=== PATIENT | female | born 1970 | race Caucasian/White ===

== ENCOUNTER → 2020-02-21 12:05 | Outpatient (BNVA) | payer OTHER, SELFPAY | PROVIDERS: PCP Internal Medicine; Referring Provider Internal Medicine; Visit Provider Advanced Practice Midwife | DX: Z76.89 Persons encountering health services in other specified circumstances (principal) ==

== ENCOUNTER → 2021-02-04 09:13 | Outpatient (BNVA) | payer OTHER, SELFPAY | PROVIDERS: PCP Internal Medicine; Visit Provider Advanced Practice Midwife ==

== ENCOUNTER 2021-03-25 07:48 | Outpatient (REF) | payer OTHER, SELFPAY ==
--- NOTE | ~2021-03-25 | MM_ITS ---
EXAMINATION: MM SCREENING DIGITAL BREAST TOMOSYNTHESIS, BILATERAL CLINICAL INFORMATION: Screening. Asymptomatic. The lifetime risk of breast cancer based on the Tyrer-Cuzick Model is 19.8%. COMPARISON: Mammography: February 10, 2020 and studies dating back to June 27, 2013 TECHNIQUE: Digital breast tomosynthesis is performed in both the craniocaudal and mediolateral oblique views along with computer-aided detection (CAD). Synthesized 2D images are generated from the tomosynthesis. FINDINGS: The breasts are almost entirely fatty (ACR BI-RADS breast composition Category a). There are no significant masses, abnormal calcifications, or other abnormalities. MM/MM tomosynthesis screening BI IMPRESSION: There are no significant changes from prior study. ASSESSMENT: BI-RADS 1: Negative RECOMMENDATION: Routine annual mammography screening. This patient's information was entered into a reminder system with a target due date for their next mammogram.
== END 2021-03-25 07:49 | disposition home or self-care (01) ==
LOC: HO.MAMMO 07:48
PROVIDERS: PCP Internal Medicine; Visit Provider Internal Medicine
DX: Z12.31 Encounter for screening mammogram for malignant neoplasm of breast (principal)
CPT/HCPCS: 77063; 77067

== ENCOUNTER → 2021-05-25 15:14 | Outpatient (BNVA) | payer OTHER, SELFPAY | PROVIDERS: PCP Internal Medicine; Visit Provider Advanced Practice Midwife ==

== ENCOUNTER → 2021-06-24 13:51 | Outpatient (BNVA) | payer OTHER, SELFPAY | PROVIDERS: PCP Internal Medicine; Visit Provider Advanced Practice Midwife | DX: Z30.46 Encounter for surveillance of implantable subdermal contraceptive (principal) | CPT/HCPCS: 11982 ==

== ENCOUNTER 2021-11-25 16:02 | Outpatient (REF) | payer OTHER, SELFPAY ==
--- NOTE | ~2021-11-25 | XR_ITS ---
EXAMINATION: XR KNEE, RIGHT CLINICAL INFORMATION: M25.561 - Pain in right knee. COMPARISON: Standing AP knees and right knee 03/03/2015. TECHNIQUE: AP and lateral views of the right knee are obtained. FINDINGS: No fracture, dislocation, destructive process. There is borderline thickening suprapatellar bursa representing trace effusion. Hoffa's fat pad appears normal. There is mild narrowing medial knee joint compartment with small spur from medial femoral condyle. No erosive change or chondrocalcinosis. XR/XR knee RT 2V IMPRESSION: -Mild narrowing medial knee joint compartment. No erosive changes. -Probable trace fluid suprapatellar bursa.
== END 2021-11-25 16:03 | disposition home or self-care (01) ==
LOC: HO.XRAY 16:02
PROVIDERS: PCP Internal Medicine; Visit Provider Internal Medicine
DX: M25.561 Pain in right knee (principal)
CPT/HCPCS: 73560

== ENCOUNTER 2021-12-09 12:42 | Outpatient (REF) | payer OTHER, SELFPAY ==
[2021-12-11 09:06] LABS: Follicle Stimulating Hormone 64.9 mIU/mL
== END 2021-12-09 12:43 | disposition home or self-care (01) ==
LOC: HO.LAB 12:42
PROVIDERS: PCP Internal Medicine; Visit Provider Advanced Practice Midwife
DX: N91.2 Amenorrhea, unspecified (principal)
CPT/HCPCS: 36415; 83001

== ENCOUNTER 2022-01-25 06:17 | Emergency (ER) | payer OTHER, SELFPAY ==
--- NOTE | ~2022-01-25 | XR_ITS ---
EXAMINATION: XR CHEST CLINICAL INFORMATION: Chest pain COMPARISON: None TECHNIQUE: Frontal view of the chest was obtained. FINDINGS: The lungs are hypoexpanded with no acute process seen. The heart size and pulmonary vascularity is normal. No gross bony abnormality. XR/XR chest 1V IMPRESSION: Unremarkable chest exam.
[2022-01-25 06:44] VITALS: BP 156/77; PULSE 74; RESP 16; TEMP -13.4; TEMP 7.9; O2SAT 99; BMI 34.9
--- NOTE | 2022-01-25 07:25 | ED.CHESTPAIN ---
HPI - Chest Pain General Chief Complaint: Chest Pain Stated Complaint: chest pain, nausea Time Seen by Provider: 01/25/22 07:24 Source: patient Mode of arrival: ambulatory Limitations: no limitations History of Present Illness HPI narrative: CXhest pain since last Night,denies SOB,radiation of the pain,cough. Feels like pressure intermittent lasting 2 minutes complaint: chest pain Onset (ago): day(s) (1) Timing of current episode: episodic Onset: during rest Pain location: substernal Pain radiation: none Severity: mild Quality: heaviness Relieving factors: nothing Exacerbating factors: nothing Context: recent illness Associated symptoms: nausea Related Data Home Medications Medication Instructions Recorded Confirmed aripiprazole 20 mg tablet 20 mg PO BEDTIME PRN 02/21/20 11/24/21 Previous Rx's Medication Instructions Recorded econazole 1 % topical cream 1 appl topical DAILY 90 days #85 02/19/21 grams cyclobenzaprine 5 mg tablet 5 mg PO TID PRN muscle spasm #14 08/19/21 tabs meloxicam 15 mg tablet 15 mg PO DAILY 14 days #14 tabs 11/24/21 omeprazole 40 mg capsule,delayed 40 mg PO DAILY 90 days #90 caps 12/02/21 release valacyclovir 1 gram tablet 1,000 mg PO DAILY 30 days #30 tabs 12/07/21 meloxicam 15 mg tablet 15 mg PO DAILY 14 days #14 tabs 01/03/22 Allergies Allergy/AdvReac Type Severity Reaction Status Date / Time quetiapine [From Seroquel] Allergy Mild Swelling Verified 01/06/22 15:14 aspirin Allergy Unknown Not Verified 01/06/22 15:14 supposed to take after gastric bypass Environmental Allergy Unknown Unknown Uncoded 08/19/21 09:07 [facility] Past Medical History [facility] Narrative: Bipolar disorder; Medical History History of irregular menstrual bleeding Hx of hemorrhoids Hx of herpes simplex infection Hx of obesity Hx of tinea corporis Pulmonary embolism Surgical History Hx of gastric bypass Hx of hammer toe correction Family History Family History Father HTN (hypertension) Mother HTN (hypertension) Maternal Grandmother Stroke Paternal Grandfather Stomach cancer Paternal Grandmother HTN (hypertension) Glaucoma Diabetes mellitus Paternal Grandmother No problems noted. Paternal Aunt Breast cancer Other Mental health disorder Substance use disorder Social History Social History Housing: Apartment Alcohol intake: former Patient Tobacco Use Status: Never used Tobacco e-Cigarette/Vaping Use: Never Used Second Hand Smoke Exposure: No Advance Directives: No Advance Directives Information Provided: Yes Current occupational status: employed Cognitive needs: No Hearing needs: No Vision needs: Yes Physical Exam Vital Signs: Vital Signs: Last Vital Signs Temp 7.9 F L 01/25/22 06:44 Pulse 79 01/25/22 12:22 Resp 16 01/25/22 12:22 BP 130/70 01/25/22 12:22 Pulse Ox 99 01/25/22 12:22 O2 Del Method 01/25/22 12:22 BMI result Body Mass Index 34.9 Const: General: cooperative, comfortable, no acute distress, well developed and awake Nutritional Appearance: average body habitus Orientation/consciousness: patient oriented x3 Limitations: no limitations HEENT: Head: Yes normal to inspection Ears: hearing grossly normal bilaterally Face and sinus: Yes normal facial exam Mouth: Normal oral and palatal mucosa present Teeth and gingiva: dentition normal Throat: Yes posterior oropharynx normal Neck: Neck: Yes normal visual inspection and Yes full ROM Chest: Chest palpation & inspection: normal inspection of the chest Resp: Effort & Inspection: normal respiratory effort Cardio: Jugular venous distension: no JVD Rate: regular rate Rhythm: regular rhythm GI: Inspection: Yes normal to inspection Palpation (GI): Soft to palpation and not firm : General: Yes no CVA tenderness Back/Spine/Pelvis: Back: no CVA tenderness Skin: General skin exam: no rashes or lesions noted Neuro: General: patient oriented x3 Course Reevaluation(s) Reevaluation #1: I re-evaluated patient at this time a patient is doing much better she has no pain delta troponin negative a chest x-ray is negative will discharge her home Time: 12:05 MDM - Chest Pain Lab Data Result diagrams: 01/25/22 07:58 01/25/22 09:00 Labs: Lab Results 01/25/22 01/25/22 01/25/22 Range/Units 07:58 07:58 09:00 WBC 7.2 (4.8-10.8) X10*3/uL RBC 4.57 (4.20-5.50) X10*6/uL Hgb 12.4 (12.0-16.0) g/dl Hct 39.7 (37.0-47.0) % MCV 86.9 (80.0-98.0) fL MCH 27.1 (27.0-33.0) pg MCHC 31.2 (31.0-35.0) g/dl RDW 13.9 (11.0-16.0) % Plt Count 329 (160-400) X10*3/uL MPV 10.0 (9.4-12.3) fL Immature Gran % (Auto) 0.1 (0.0-0.4) % Neut % (Auto) 52.4 (45-73) % Lymph % (Auto) 34.5 (20-40) % Gonzales % (Auto) 8.8 (2-11) % Eos % (Auto) 3.6 (0-4) % Baso % (Auto) 0.6 (0-2) % Lymph # (Auto) 2.5 (1.2-4.9) X10*3/uL Gonzales # (Auto) 0.6 (0.1-1.2) X10*3/uL Eos # (Auto) 0.3 (0.0-0.4) X10*3/uL Baso # (Auto) 0.0 (0.0-0.2) X10*3/uL Abs Immat Gran (auto) 0.01 (0.00-0.03) X10*3/uL Absolute Neuts (auto) 3.8 (2.0-8.3) x10*3/uL Absolute Nucleated RBC 0.000 (0.0-0.012) X10*3/uL Nucleated RBC % (auto) 0.0 (0.0-0.2) /100WBC Sodium 141 (135-145) mmol/L Potassium 4.3 (3.3-5.1) mmol/L Chloride 107 (96-108) mmol/L Carbon Dioxide 25 (22-29) mmol/L Anion Gap 13 (12-20) BUN 15 (9-16) mg/dL Creatinine 0.71 (0.5-1.4) mg/dL Estim Creat Clear Calc 119.8 Estimated GFR > 60 Random Glucose 94 (60-115) mg/dL Calcium 8.5 (8.4-10.2) mg/dL Total Bilirubin 0.4 (0.0-1.0) mg/dL AST 16 (5-31) U/L ALT 18 (0-31) U/L Alkaline Phosphatase 77 (39-117) U/L Troponin I High Sens < 3.5 (<3.5-17.0) ng/L Total Protein 6.7 (6.5-8.0) g/dL Albumin 4.0 (3.5-5.0) g/dL 01/25/22 Range/Units 10:59 WBC (4.8-10.8) X10*3/uL RBC (4.20-5.50) X10*6/uL Hgb (12.0-16.0) g/dl Hct (37.0-47.0) % MCV (80.0-98.0) fL MCH (27.0-33.0) pg MCHC (31.0-35.0) g/dl RDW (11.0-16.0) % Plt Count (160-400) X10*3/uL MPV (9.4-12.3) fL Immature Gran % (Auto) (0.0-0.4) % Neut % (Auto) (45-73) % Lymph % (Auto) (20-40) % Gonzales % (Auto) (2-11) % Eos % (Auto) (0-4) % Baso % (Auto) (0-2) % Lymph # (Auto) (1.2-4.9) X10*3/uL Gonzales # (Auto) (0.1-1.2) X10*3/uL Eos # (Auto) (0.0-0.4) X10*3/uL Baso # (Auto) (0.0-0.2) X10*3/uL Abs Immat Gran (auto) (0.00-0.03) X10*3/uL Absolute Neuts (auto) (2.0-8.3) x10*3/uL Absolute Nucleated RBC (0.0-0.012) X10*3/uL Nucleated RBC % (auto) (0.0-0.2) /100WBC Sodium (135-145) mmol/L Potassium (3.3-5.1) mmol/L Chloride (96-108) mmol/L Carbon Dioxide (22-29) mmol/L Anion Gap (12-20) BUN (9-16) mg/dL Creatinine (0.5-1.4) mg/dL Estim Creat Clear Calc Estimated GFR Random Glucose (60-115) mg/dL Calcium (8.4-10.2) mg/dL Total Bilirubin (0.0-1.0) mg/dL AST (5-31) U/L ALT (0-31) U/L Alkaline Phosphatase (39-117) U/L Troponin I High Sens < 3.5 (<3.5-17.0) ng/L Total Protein (6.5-8.0) g/dL Albumin (3.5-5.0) g/dL Imaging Data Chest x-ray: Radiologist's impression: cc: Ham Morton MD~ EXAMINATION: XR CHEST CLINICAL INFORMATION: Chest pain COMPARISON: None TECHNIQUE: Frontal view of the chest was obtained. FINDINGS: The lungs are hypoexpanded with no acute process seen. The heart size and pulmonary vascularity is normal. No gross bony abnormality. XR/XR chest 1V IMPRESSION: Unremarkable chest exam. ? Dictated By: Dalton Fallon MD Signed By: <Electronically signed by Dalton Fallon MD in OV> 01/25/22918 DD/ 3 TD/TT:? 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: [facility] [place] ECG Data ECG #1: Pacemaker model: NSR [address]-t changes no ischemia Discharge Plan Discharge Clinical Impression: Chest pain Patient Disposition: Home, Self-Care Instructions: Chest Pain (DC) Prescriptions: No Action omeprazole 40 mg capsule,delayed release(DR/EC) 40 mg PO DAILY 90 Days Qty: 90 1RF valacyclovir 1 gram tablet 1,000 mg PO DAILY 30 Days Qty: 30 0RF meloxicam 15 mg tablet 15 mg PO DAILY 14 Days Qty: 14 0RF econazole 1 % cream 1 appl topical DAILY 90 Days Qty: 85 0RF cyclobenzaprine 5 mg tablet 5 mg PO TID PRN (Reason: muscle spasm) Qty: 14 0RF meloxicam 15 mg tablet 15 mg PO DAILY 14 Days Qty: 14 0RF aripiprazole 20 mg tablet 20 mg PO BEDTIME PRN Referrals: Ceferino Chen MD [Primary Care Provider] - 2 days Stand Alone Forms: Work/School Release Interventions: ED Discharge Assessment Last Done: 01/25/22 12:28 Discharge Date/Time: 01/25/22 12:30
[2022-01-25 08:02] LABS: Hematocrit 39.7 % (37.0-47.0); Hemoglobin 12.4 g/dl (12.0-16.0); Imm Gran Pct Auto 0.1 % (0.0-0.4); Lymphocytes Percent Auto 34.5 % (20-40); MANUAL DIFF FLAG NO; Mean Corpuscular HGB Conc 31.2 g/dl (31.0-35.0); Mean Corpuscular Hemoglobin 27.1 pg (27.0-33.0); Mean Corpuscular Volume 86.9 fL (80.0-98.0); Neutrophils Percent Auto 52.4 % (45-73); Platelet Count 329 X10*3/uL (160-400); Red Blood Count 4.57 X10*6/uL (4.20-5.50); Red Cell Distribution Width 13.9 % (11.0-16.0); White Blood Count 7.2 X10*3/uL (4.8-10.8)
[2022-01-25 08:03] LABS: Basophils Percent Auto 0.6 % (0-2); Eosinophils Absolute Auto 0.3 X10*3/uL (0.0-0.4); Eosinophils Percent Auto 3.6 % (0-4); Imm Gran Abs Auto 0.01 X10*3/uL (0.00-0.03); Lymphocytes Absolute Auto 2.5 X10*3/uL (1.2-4.9); Monocytes Absolute Auto 0.6 X10*3/uL (0.1-1.2); Monocytes Percent Auto 8.8 % (2-11); Neutrophils Absolute Auto 3.8 x10*3/uL (2.0-8.3)
[2022-01-25] MEDS: ondansetron HCL 4 MG/2 ML VIAL IVPUSH (08:03)
[2022-01-25 08:23] LABS: Troponin-I High Sensitivity < 3.5 ng/L (<3.5-17.0)
--- NOTE | 2022-01-25 08:33 | ECG_ITS ---
Test Reason : CHEST PAIN Blood Pressure : / mmHG Vent. Rate : 069 BPM Atrial Rate : 069 BPM P-R Int : 160 ms QRS Dur : 080 ms QT Int : 392 ms P-R-T Axes : 057 025 048 degrees QTc Int : 420 ms Normal sinus rhythm with sinus arrhythmia Normal ECG When compared with ECG of 03-JUN-2011 10:28, No significant change was found Referred By: Ham Morton Electronically Signed By:NIKOLAY COMBS
[2022-01-25 09:28] LABS: Alanine Aminotransferase 18 U/L (0-31); Alkaline Phosphatase 77 U/L (39-117); Anion Gap 13 (12-20); Aspartate Amino Transferase 16 U/L (5-31); Bilirubin Total 0.4 mg/dL (0.0-1.0); Blood Urea Nitrogen 15 mg/dL (9-16); Calcium 8.5 mg/dL (8.4-10.2); Carbon Dioxide 25 mmol/L (22-29); Chloride 107 mmol/L (96-108); Creatinine Clr Calc Pharmacy 119.8; Estimated Glomerular Filt Rate > 60; Glucose Random 94 mg/dL (60-115); Potassium 4.3 mmol/L (3.3-5.1); Sodium 141 mmol/L (135-145); Total Protein 6.7 g/dL (6.5-8.0)
[2022-01-25 10:45] VITALS: BP 134/73; PULSE 57; RESP 16; O2SAT 99
--- NOTE | 2022-01-25 10:46 | PC.NURSE ---
Sinus christina on tele, Pt reports pain is not present at this time. Sinus christina on tele rate 50s. Denies any SOB or dizziness. Mild nausea. Skin pd. Speaking full sentences. VSS. awaits dispo
[2022-01-25 11:28] LABS: Troponin-I High Sensitivity < 3.5 ng/L (<3.5-17.0)
[2022-01-25 12:22] VITALS: BP 130/70; PULSE 79; RESP 16; O2SAT 99
== END 2022-01-25 12:30 | disposition home or self-care (01) ==
PROVIDERS: Emergency Provider Emergency Medicine; PCP Internal Medicine
DX: R07.89 Other chest pain (principal); R05.9 Cough, unspecified; R06.02 Shortness of breath; Z79.899 Other long term (current) drug therapy
CPT/HCPCS: 36415; 71045; 80053; 84484; 85025; 93005; 96374; 99284; J2405

== ENCOUNTER 2022-03-29 15:39 | Outpatient (REF) | payer OTHER, SELFPAY ==
--- NOTE | ~2022-03-29 | MM_ITS ---
EXAMINATION: MM SCREENING DIGITAL BREAST TOMOSYNTHESIS, BILATERAL CLINICAL INFORMATION: Screening. Asymptomatic. COMPARISON: Mammography: March 25, 2021 and studies dating back to July 23, 2015 TECHNIQUE: Digital breast tomosynthesis is performed in both the craniocaudal and mediolateral oblique views along with computer-aided detection (CAD). Synthesized 2D images are generated from the tomosynthesis. Additional left exaggerated craniocaudal view performed. FINDINGS: There are scattered areas of fibroglandular density (ACR BI-RADS breast composition Category b). There are no significant masses, abnormal calcifications, or other abnormalities. MM/MM tomosynthesis screening BI IMPRESSION: No significant changes from prior exam. ASSESSMENT: BI-RADS 1: Negative RECOMMENDATION: Routine annual mammography screening. This patient's information was entered into a reminder system with a target due date for their next mammogram.
== END 2022-03-29 15:40 | disposition home or self-care (01) ==
LOC: HO.MAMMO 15:39
PROVIDERS: PCP Internal Medicine; Visit Provider Internal Medicine
DX: Z12.31 Encounter for screening mammogram for malignant neoplasm of breast (principal)
CPT/HCPCS: 77063; 77067

== ENCOUNTER 2022-04-18 09:29 | Outpatient (REF) | payer OTHER, SELFPAY ==
--- NOTE | ~2022-04-18 | XR_ITS ---
EXAMINATION: XR HIP, LEFT CLINICAL INFORMATION: Left hip pain COMPARISON: None TECHNIQUE: Two views of the left hip. FINDINGS: No fracture, dislocation or destructive process. No erosive change. Pelvis intact. Small sclerotic areas seen over the right ischium likely bone islands. Right hip intact. XR/XR hip LT w PEL1V IMPRESSION: Unremarkable study.
== END 2022-04-18 09:30 | disposition home or self-care (01) ==
LOC: HO.HMGCX 09:29
PROVIDERS: PCP Internal Medicine; Visit Provider Internal Medicine
DX: M25.552 Pain in left hip (principal)
CPT/HCPCS: 73502

== ENCOUNTER 2022-05-30 11:21 | Outpatient (REF) | payer OTHER, SELFPAY ==
--- NOTE | ~2022-05-30 | XR_ITS ---
EXAMINATION: XR LUMBOSACRAL SPINE CLINICAL INFORMATION: Low back pain with radiculopathy. COMPARISON: 04/20/2015 lumbar spine radiographs. TECHNIQUE: Three views of the lumbosacral spine. FINDINGS: Mild to moderate multilevel degenerative disc disease is seen, most pronounced at L2-L3 and L3-L4. A limbus vertebra is noted at L4. Bodies are otherwise intact. The facet joints are unremarkable. The soft tissues are unremarkable. An IVC filter with mildly displaced broken prong is unchanged. XR/XR lumbar spine 2-3V IMPRESSION: Multilevel degenerative changes, mildly increased compared to thousand 15 study. No acute abnormality.
== END 2022-05-30 11:22 | disposition home or self-care (01) ==
LOC: HO.LAB 11:21
PROVIDERS: PCP Internal Medicine; Visit Provider Internal Medicine
DX: M54.16 Radiculopathy, lumbar region (principal)
CPT/HCPCS: 72100

== ENCOUNTER 2022-06-07 17:11 | Emergency (ER) | payer OTHER, SELFPAY ==
[2022-06-07 17:34] VITALS: BP 130/80; PULSE 88; RESP 18; TEMP 36.4; O2SAT 94; BMI 33.4
--- NOTE | 2022-06-07 17:37 | ED.GENADULT ---
HPI - General Adult General Chief complaint: Back Pain/Injury <SKIP Jordan - Last Filed: 06/07/22 20:11> Stated complaint: back pain <SKIP Jordan - Last Filed: 06/07/22 20:11> Time Seen by Provider: 06/07/22 17:47 <SKIP Jordan - Last Filed: 06/07/22 20:11> Source: patient <SKIP Tomas - Last Filed: 06/07/22 19:01> Mode of arrival: ambulatory <SKIP Tomas - Last Filed: 06/07/22 19:01> History of Present Illness HPI narrative: 52-year-old female with past medical history of PE, gastric bypass, osteoarthritis, chronic back pain, presenting to the ED complaining of acute on chronic low back pain radiating down right lower extremity. Reports paresthesias down right lower extremity. Admits to seen PCP multiple times for similar symptoms, currently taking Cyclobenzaprine, Tramadol, and Tylenol without relief. Denies new injury, trauma or fall, weakness, numbness, urinary incontinence/retention <SKIP Tomas - Last Filed: 06/07/22 19:01> Onset (ago): day(s) <SKIP Tomas - Last Filed: 06/07/22 19:01> Related Data Home medications: Home Medications Medication Instructions Recorded Confirmed aripiprazole 20 mg tablet 20 mg PO BEDTIME PRN 02/21/20 06/03/22 Previous Rx's Medication Instructions Recorded econazole 1 % topical cream 1 appl topical DAILY 90 days #85 02/19/21 grams omeprazole 40 mg capsule,delayed 40 mg PO DAILY 90 days #90 caps 12/02/21 release valacyclovir 1 gram tablet 1,000 mg PO DAILY 30 days #30 tabs 12/07/21 lidocaine 4 % topical patch 1 patch topical DAILY PRN pain #10 04/18/22 (Aspercreme (lidocaine)) ea meloxicam 15 mg tablet 15 mg PO DAILY #14 tabs 04/18/22 cyclobenzaprine 5 mg tablet 5 mg PO BEDTIME 30 days #30 tabs 05/30/22 tramadol 50 mg tablet 50 mg PO BID PRN pain 10 days #20 05/30/22 tabs acetaminophen 500 mg tablet 500 mg PO Q6H PRN fever or pain 06/07/22 (Tylenol Extra Strength) #14 tabs diazepam 2 mg tablet (Valium) 2 mg PO BID PRN muscle spasm 5 06/07/22 days #10 tabs lidocaine 5 % topical patch 1 patch topical DAILY PRN pain #30 06/07/22 (Lidoderm) ea <SKIP Jordan Last Filed: 06/07/22 20:11> Allergies/adverse reactions: Allergies Allergy/AdvReac Type Severity Reaction Status Date / Time quetiapine [From Seroquel] Allergy Mild Swelling Verified 05/27/22 08:21 aspirin Allergy Unknown Not Verified 05/27/22 08:21 supposed to take after gastric bypass Environmental Allergy Unknown Unknown Uncoded 05/27/22 08:21 <SKIP Jordan Last Filed: 06/07/22 20:11> Review of Systems Review of Systems: Constitutional: No Fever, No Chills ENT/Mouth: No Ear Pain, No Nasal Congestion, No sore throat, No Rhinorrhea, No Swallowing Difficulty Cardiovascular: No Chest Pain, No SOB Respiratory: No Cough, No Sputum Gastrointestinal: No Nausea, No Vomiting, No Diarrhea, No Constipation, No Abdominal pain Genitourinary: No Dysuria, No Hematuria, No Urinary Incontinence/retention, No Flank Pain Musculoskeletal: + joint pain, No Myalgias, No Joint Swelling Skin: No Skin Lesions, No rash Neuro: No Weakness, No Numbness, + Paresthesias <SKIP Tomas Last Filed: 06/07/22 19:01> Yes all other systems are reviewed and are negative <SKIP Tomas Last Filed: 06/07/22 19:01> Constitutional: Constitutional: Reports as per HPI <SKIP Tomas Last Filed: 06/07/22 19:01> PMF Past Medical History Attestation statement: The following information was validated with the patient. <SKIP Tomas Last Filed: 06/07/22 19:01> Medical History: Medical History History of irregular menstrual bleeding Hx of hemorrhoids Hx of herpes simplex infection Hx of obesity Hx of tinea corporis Pulmonary embolism <SKIP Jordan - Last Filed: 06/07/22 20:11> Surgical History: Surgical History Hx of gastric bypass Hx of hammer toe correction <SKIP Jordan - Last Filed: 06/07/22 20:11> Family History Family History: Family History Father HTN (hypertension) Mother HTN (hypertension) Maternal Grandmother Stroke Paternal Grandfather Stomach cancer Paternal Grandmother HTN (hypertension) Glaucoma Diabetes mellitus Paternal Grandmother No problems noted. 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 [employer] Current occupational exposures/hazards: No Cognitive needs: No Hearing needs: No Vision needs: Yes <SKIP Jordan - Last Filed: 06/07/22 20:11> Physical Exam ED Vital Signs: Vital Signs - 24 hr 06/07/22 17:34 Temperature 97.5 F Pulse Rate 88 Respiratory Rate 18 Blood Pressure 130/80 Pulse Oximetry 94 Oxygen Delivery Method Room Air BMI result Body Mass Index 33.4 <SKIP Jordan - Last Filed: 06/07/22 20:11> Vital Signs - 24 hr 06/07/22 17:34 Temperature 97.5 F Pulse Rate 88 Respiratory Rate 18 Blood Pressure 130/80 Pulse Oximetry 94 Oxygen Delivery Method Room Air BMI result Body Mass Index 33.4 <SKIP Tomas - Last Filed: 06/07/22 19:01> Const General: cooperative, healthy appearing and no acute distress <SKIP Tomas Last Filed: 06/07/22 19:01> Orientation/consciousness: patient oriented x3 <SKIP Tomas - Last Filed: 06/07/22 19:01> Limitations: no limitations <SKIP Tomas - Last Filed: 06/07/22 19:01> HENMT Head: Yes normal to inspection and Yes atraumatic <Krystal Rae PA - Last Filed: 06/07/22 19:01> Ears: hearing grossly normal bilaterally <Krystal Rae PA - Last Filed: 06/07/22 19:01> General nose exam: Normal external nose present <Krystal Rae PA - Last Filed: 06/07/22 19:01> Face and sinus: Yes normal facial exam <Krystal Rae PA - Last Filed: 06/07/22 19:01> Eyes General: appearance normal, both eyes and all related structures <Krystal Rae PA - Last Filed: 06/07/22 19:01> EOM: EOMs intact bilaterally <Krystal Rae PA - Last Filed: 06/07/22 19:01> Neck Neck: Yes normal visual inspection and Yes no meningeal signs <Krystal Rae PA - Last Filed: 06/07/22 19:01> Resp Effort & Inspection: normal respiratory effort and no respiratory distress <Krystal Rae PA - Last Filed: 06/07/22 19:01> Cardio Rate: regular rate <Krystal Rae PA - Last Filed: 06/07/22 19:01> Heart sounds: S1 normal heart sound present and S2 normal heart sound present <Krystal Rae PA - Last Filed: 06/07/22 19:01> Peripheral pulses: Peripheral pulses 2+ throughout <Krystal Rae PA - Last Filed: 06/07/22 19:01> GI Inspection: Yes normal to inspection <Krystal Rae PA - Last Filed: 06/07/22 19:01> Palpation (GI): Soft to palpation, nontender, no guarding and not rigid <Krystal Rae PA - Last Filed: 06/07/22 19:01> General: Yes no CVA tenderness <Krystal Rae PA - Last Filed: 06/07/22 19:01> Back/Spine/Pelvis Other: No midline thoracic/lumbar spinous tenderness/step-off or deformity. +bilateral lower lumbar MSK ttp <SKIP Tomas - Last Filed: 06/07/22 19:01> Back: no CVA tenderness <SKIP Tomas - Last Filed: 06/07/22 19:01> Thoracic/Lumbar Spine: thoracic and lumbar spine normal to inspection <SKIP Tomas - Last Filed: 06/07/22 19:01> Pelvis: no pain with anterior-posterior compression <SKIP Tomas - Last Filed: 06/07/22 19:01> Skin Rashes: no rashes <SKIP Tomas - Last Filed: 06/07/22 19:01> Wounds: no wounds <SKIP Tomas - Last Filed: 06/07/22 19:01> Neuro Other: Strength intact throughout. No saddle anesthesia. Sensation intact to light touch. Neurovascular intact distally. Guarded ambulation but steady, no ataxia <SKIP Tomas - Last Filed: 06/07/22 19:01> General: patient oriented x3, tone normal, moves all extremities, no meningeal signs and no focal motor deficits <SKIP Tomas Last Filed: 06/07/22 19:01> Gait exam (Neuro): Normal gait present <SKIP Tomas Last Filed: 06/07/22 19:01> Motor exam (neuro): 5/5 motor strength present throughout <SKIP Tomas Last Filed: 06/07/22 19:01> Extrem General: Yes normal to inspection <SKIP Tomas Last Filed: 06/07/22 19:01> Course Course Course Narrative: RME: 52 yold female with chronic back pain exacerbation already on tramadol, steroids, and muscle relaxer. <SKIP Jordan Last Filed: 06/07/22 20:11> RME: 52 yold female with chronic back pain exacerbation already on tramadol, steroids, and muscle relaxer. -1850--ED care transferred to SKIP Herman pending re-evaluation, anticipate discharge home <SKIP Tomas Last Filed: 06/07/22 19:01> Medications Administered Discontinued Medications Generic Name Dose Route Start Last Admin Trade Name Freq PRN Reason Stop Dose Admin Acetaminophen 650 mg 06/07/22 18:14 06/07/22 18:46 Acetaminophen 325 Mg Tablet PO 06/07/22 18:15 650 mg ONCE ONE Administration Diazepam 2 mg 06/07/22 18:13 06/07/22 18:46 Diazepam 2 Mg Tablet PO 06/07/22 18:14 2 mg ONCE ONE Administration Lidocaine 1 patch 06/07/22 18:13 06/07/22 18:46 Lidocaine 4 % Patch Adh..Patch TRANSDERMA 06/07/22 18:14 1 patch ONCE ONE Administration Protocol <SKIP Jordan - Last Filed: 06/07/22 20:11> Medications Administered Discontinued Medications Generic Name Dose Route Start Last Admin Trade Name Freq PRN Reason Stop Dose Admin Acetaminophen 650 mg 06/07/22 18:14 06/07/22 18:46 Acetaminophen 325 Mg Tablet PO 06/07/22 18:15 650 mg ONCE ONE Administration Diazepam 2 mg 06/07/22 18:13 06/07/22 18:46 Diazepam 2 Mg Tablet PO 06/07/22 18:14 2 mg ONCE ONE Administration Lidocaine 1 patch 06/07/22 18:13 06/07/22 18:46 Lidocaine 4 % Patch Adh..Patch TRANSDERMA 06/07/22 18:14 1 patch ONCE ONE Administration Protocol <SKIP Tomas - Last Filed: 06/07/22 19:01> Medical Decision Making Medical Decision Making MDM Narrative: 52-year-old female with past medical history of PE, gastric bypass, osteoarthritis, chronic back pain, presenting to the ED complaining of acute on chronic low back pain radiating down right lower extremity. On exam vital signs stable, NAD, nontoxic appearing, no midline spinous tenderness throughout or red flag symptoms. Ambulating with slow steady gait, no ataxia. Concern for MSK pain/strain and sciatica vs herniated disc. Low suspicion for cauda equina, cord compression, epidural abscess, no evidence of infection. Low suspicion for pyelo/renal stone Plan: PO Valium, Lidoderm patch, p.o. Tylenol, re-evaluation <SKIP Tomas Last Filed: 06/07/22 19:01> Differential Diagnosis Differential Diagnoses: The differential diagnosis associated with the presentation includes <SKIP Tomas Last Filed: 06/07/22 19:01> As above <SKIP Tomas - Last Filed: 06/07/22 19:01> Prescription Management I considered prescription management with: Pain Medication <SKIP Tomas - Last Filed: 06/07/22 19:01> Discharge Plan Discharge Clinical Impression: Acute lumbar radiculopathy <SKIP Jordan - Last Filed: 06/07/22 20:11> Patient Disposition: Home, Self-Care <SKIP Jordan - Last Filed: 06/07/22 20:11> Instructions: Lumbar Radiculopathy (ED) <SKIP Jordan - Last Filed: 06/07/22 20:11> Additional Instructions: Continue taking her previously prescribed medications. Valium is an additional muscle relaxer, take only when pain is severe. Please avoid mixing Valium with Flexeril or your tramadol. This can cause over-sedation Call your doctor for close follow-up Lidoderm patches are numbing patches, apply to painful area In addition take Tylenol at home If symptoms persist or worsen, pain becomes unbearable, you developed urinary retention or incontinence, or weakness return to the ED <SKIP Jordan - Last Filed: 06/07/22 20:11> Prescriptions: New diazepam [Valium] 2 mg tablet 2 mg PO BID PRN (Reason: muscle spasm) 5 Days Qty: 10 0RF acetaminophen [Tylenol Extra Strength] 500 mg tablet 500 mg PO Q6H PRN (Reason: fever or pain) Qty: 14 0RF lidocaine [Lidoderm] 5 % adhesive patch,medicated 1 patch topical DAILY MDD remove after 12 hours PRN (Reason: pain) Qty: 30 0RF Rx Instructions: leave on most painful area for up to 12 hrs No Action omeprazole 40 mg capsule,delayed release(DR/EC) 40 mg PO DAILY 90 Days Qty: 90 1RF valacyclovir 1 gram tablet 1,000 mg PO DAILY 30 Days Qty: 30 0RF econazole 1 % cream 1 appl topical DAILY 90 Days Qty: 85 0RF meloxicam 15 mg tablet 15 mg PO DAILY Qty: 14 0RF lidocaine [Aspercreme (lidocaine)] 4 % adhesive patch,medicated 1 patch topical DAILY PRN (Reason: pain) Qty: 10 0RF tramadol 50 mg tablet 50 mg PO BID PRN (Reason: pain) 10 Days Qty: 20 0RF cyclobenzaprine 5 mg tablet 5 mg PO BEDTIME 30 Days Qty: 30 0RF aripiprazole 20 mg tablet 20 mg PO BEDTIME PRN <SKIP Jordan - Last Filed: 06/07/22 20:11> Referrals: Gabrielle Gilman MD [Physician] - (call) Physician,Unknown J [Primary Care Provider] - <SKIP Jordan - Last Filed: 06/07/22 20:11> Stand Alone Forms: Work/School Release <SKIP Jordan - Last Filed: 06/07/22 20:11>
[2022-06-07] MEDS: Acetaminophen 325 MG TABLET 650 MG PO (18:46)
[2022-06-07] MEDS: Lidocaine 4 % Patch ADH..PATCH 1 PATCH TRANSDERMA (18:46)
[2022-06-07] MEDS: diazePAM 2 MG TABLET PO (18:46)
[2022-06-07 20:00] VITALS: BP 115/81; PULSE 69; RESP 16; TEMP 36.5; O2SAT 97
== END 2022-06-07 20:17 | disposition home or self-care (01) ==
PROVIDERS: Emergency Provider Emergency Medicine Emergency Medical Services
DX: M54.16 Radiculopathy, lumbar region (principal); M54.50 Low back pain, unspecified; M79.605 Pain in left leg; M79.604 Pain in right leg; Z79.899 Other long term (current) drug therapy; Z98.84 Bariatric surgery status
CPT/HCPCS: 99283; 99284

== ENCOUNTER 2022-09-13 08:53 | Outpatient (REF) | payer OTHER, SELFPAY ==
--- NOTE | ~2022-09-13 | US_ITS ---
EXAMINATION: US ABDOMEN COMPLETE CLINICAL INFORMATION: Abdominal pain. Right flank pain.. COMPARISON: CT scan dated February 26, 2018. Abdominal ultrasound dated October 07, 2013. TECHNIQUE: Real-time imaging of the abdominal viscera. FINDINGS: The study is limited by patient body habitus. PANCREAS: Not well visualized. ABDOMINAL AORTA: The proximal, mid, and distal segments are normal in caliber. INFERIOR VENA CAVA: Visualized portions are normal. LIVER: Grossly unremarkable The liver is normal in size. The liver contour is normal. Parenchymal echogenicity appears grossly unremarkable. No focal hepatic lesion appreciated. No intrahepatic biliary duct dilatation is seen. GALLBLADDER: The gallbladder is physiologically distended without evidence of stones, sludge, polyps, wall thickening or pericholecystic fluid. COMMON BILE DUCT: Measures 0.8 cm in diameter. RIGHT KIDNEY: No hydronephrosis. No renal calculi or focal parenchymal lesions. The kidney measures 12.0 cm in maximum dimension. LEFT KIDNEY: No hydronephrosis. No renal calculi or focal parenchymal lesions. The kidney measures 11.4 cm in maximum dimension. SPLEEN: The spleen measures 8.8 cm in maximum dimension. FREE FLUID: None. US/US abdomen complete IMPRESSION: No acute finding. Common bile duct upper normal in size to mildly dilated. No evidence of intrahepatic biliary ductal dilation or gallstone.
== END 2022-09-13 08:54 | disposition home or self-care (01) ==
LOC: HO.HMGCX 08:53
PROVIDERS: PCP Internal Medicine; Visit Provider Physician Assistant
DX: R10.9 Unspecified abdominal pain (principal)
CPT/HCPCS: 76700

== ENCOUNTER 2023-01-30 15:12 | Outpatient (AMB) | payer OTHER, SELFPAY ==
--- NOTE | 2023-01-30 15:13 | A.OFFVIS_ITS ---
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 No complaints. Last Pap/HPV was in 02/08 was negative Last Mammogram was in 04/12 was BI-RADS 1 No previous screening Colonoscopy done PFSH Medical History Flank pain Pulmonary embolism Hx of tinea corporis Hx of hemorrhoids Hx of herpes simplex infection History of irregular menstrual bleeding Hx of obesity Surgical History Hx of gastric bypass Hx of hammer toe correction Family History (Updated 01/30/23 @ 15:21 by Areli Britt CMA) Father HTN (hypertension) Lung cancer Mother HTN (hypertension) Maternal Grandmother Stroke Paternal Grandfather Stomach cancer Paternal Grandmother HTN (hypertension) Glaucoma Diabetes mellitus Paternal Grandmother No problems noted. 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 [employer] Current occupational exposures/hazards: No Sexually active: Yes Sexual orientation: Straight/Heterosexual Gender identity: Female Cognitive needs: No Hearing needs: No Vision needs: Yes Female Reproductive History Menstrual Age of Menarche: 15 Total pregnancies: 1 Number of Living Children: 0 Ab induced: 1 Date of last pap smear: 02/06/20 Date of Mammogram: 03/29/22 Review of Systems Const All systems reviewed & are unremarkable except as noted in HPI and below Card Reports as per HPI Resp Reports as per HPI GI Reports as per HPI and Reports no additional complaints Reports as per HPI Physical Exam Vital Signs: Last Vital Signs BP 116/70 01/30/23 15:14 BMI result Body Mass Index 36.5 Const General: cooperative, healthy appearing and comfortable Chest Chest palpation & inspection: normal inspection of the chest and normal palpation of entire chest wall Breast/axilla inspection: normal inspection of the breasts and normal inspection of the axillae Breast/axilla palpation: normal palpation of the breasts, normal palpation of the axillae and no axillary lymphadenopathy Resp Effort & Inspection: normal respiratory effort Auscultation: clear to auscultation bilaterally Percussion: percussion normal Cardio Palpation: normal PMI Rate: regular rate Rhythm: regular rhythm Heart sounds: no murmurs and no rubs Peripheral pulses: Peripheral pulses 2+ throughout GI Inspection: Yes normal to inspection Palpation (GI): Soft to palpation, nontender, no guarding, not rigid and No hepatosplenomegaly present Percussion: Yes normal to percussion Auscultation: normal bowel sounds Rectal Exam - Female: deferred General: Yes bladder normal to palpation External Female Exam: No lesion Speculum Exam - Vagina: normal appearance of the vagina, normal palpation, normal vaginal discharge and not erythematous Speculum Exam - Cervix: normal appearance of the cervix and normal palpation Bimanual exam- vagina & uterus: normal bimanual exam, normal palpation, uterine size normal, bladder normal to palpation, consistency normal and normal palpation Bimanual Exam- Adnexa, other: normal adnexae, no masses and no tenderness Assessment & Plan Assessment & Plan (1) Well woman exam: Code(s): Z01.419 - Encounter for gynecological examination (general) (routine) without abnormal findings Plan: Co testing not indicated this year. Counseled the patient about the recommended dietary allowance of 1200 mg of Calcium & 600 IU of vitamin D. Mammogram ordered , the patient was counseled regarding screening colonoscopy with a pros and cons , risks and benefits and the patient would like to think about to give back to me regarding referred to GI . The patient was instructed to perform monthly self-breast exams and schedule annual exam in a year; all questions answered and the patient verbalized understanding. Orders: Orders MM screening mammo BI Today Z12.31 - Encounter for screening mammogram for malignant neoplasm of breast Coding Level of Care Code Est Pt Prev Care 40-64y([id number]) Diagnoses Well woman exam Z01.419
[2023-01-30 15:14] VITALS: BP 116/70; BMI 36.5
== END 2023-01-30 15:41 | disposition home or self-care (01) ==
PROVIDERS: PCP Internal Medicine; Visit Provider Obstetrics & Gynecology
DX: Z01.419 Encounter for gynecological examination (general) (routine) without abnormal findings (principal)
CPT/HCPCS: 99396

== ENCOUNTER → 2023-01-30 15:12 | Outpatient (BNVA) | payer OTHER, SELFPAY | PROVIDERS: PCP Internal Medicine; Visit Provider Obstetrics & Gynecology ==

== ENCOUNTER 2023-03-07 14:39 | Outpatient (AMB) | payer OTHER, SELFPAY ==
[2023-03-07 14:41] VITALS: BP 112/70; PULSE 88; O2SAT 97; BMI 35.6
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
== END 2023-03-07 15:05 | disposition home or self-care (01) ==
PROVIDERS: Visit Provider Internal Medicine
DX: Z00.01 Encounter for general adult medical examination with abnormal findings (principal); E66.09 Other obesity due to excess calories; Z68.35 Body mass index [BMI] 35.0-35.9, adult; F31.81 Bipolar II disorder; F43.10 Post-traumatic stress disorder, unspecified; F41.1 Generalized anxiety disorder
CPT/HCPCS: 99396

== ENCOUNTER 2023-03-11 07:15 | Outpatient (REF) | payer OTHER, SELFPAY ==
[2023-03-11 07:42] LABS: MANUAL DIFF FLAG NO
[2023-03-11 08:14] LABS: Basophils Percent Auto 0.5 % (0-2); Eosinophils Absolute Auto 0.2 X10*3/uL (0.0-0.4); Eosinophils Percent Auto 3.8 % (0-4); Hemoglobin 11.8 g/dl (12.0-16.0); Imm Gran Abs Auto 0.02 X10*3/uL (0.00-0.03); Imm Gran Pct Auto 0.5 % (0.0-0.4); Lymphocytes Absolute Auto 1.6 X10*3/uL (1.2-4.9); Lymphocytes Percent Auto 38.4 % (20-40); Mean Corpuscular HGB Conc 31.1 g/dl (31.0-35.0); Mean Corpuscular Hemoglobin 26.3 pg (27.0-33.0); Mean Corpuscular Volume 84.6 fL (80.0-98.0); Mean Platelet Volume 9.8 fL (9.4-12.3); Monocytes Absolute Auto 0.7 X10*3/uL (0.1-1.2); Neutrophils Absolute Auto 1.7 x10*3/uL (2.0-8.3); Neutrophils Percent Auto 40.8 % (45-73); Platelet Count 286 X10*3/uL (160-400); Red Blood Count 4.49 X10*6/uL (4.20-5.50); Red Cell Distribution Width 14.4 % (11.0-16.0); White Blood Count 4.2 X10*3/uL (4.8-10.8)
[2023-03-11 08:57] LABS: Alanine Aminotransferase 18 U/L (0-31); Albumin Level 4.4 g/dL (3.5-5.0); Alkaline Phosphatase 79 U/L (39-117); Anion Gap 14 (12-20); Aspartate Amino Transferase 21 U/L (5-31); Bilirubin Total 0.6 mg/dL (0.0-1.0); Blood Urea Nitrogen 8 mg/dL (9-16); Calcium 9.3 mg/dL (8.4-10.2); Carbon Dioxide 23 mmol/L (22-29); Chloride 103 mmol/L (96-108); Cholesterol 188 mg/dL (<200); Estimated Glomerular Filt Rate > 60; Glucose Fasting 107 mg/dL (60-99); HDL Cholesterol 63 mg/dL (>40); LDL Cholesterol Calculated 107 mg/dL (<100); Potassium 4.1 mmol/L (3.3-5.1); Sodium 136 mmol/L (135-145); Total Protein 7.4 g/dL (6.5-8.0); Triglycerides 91 mg/dL (<150)
[2023-03-11 09:04] LABS: TSH reflex Free T4 1.02 uIU/mL (0.32-4.0)
== END 2023-03-11 07:16 | disposition home or self-care (01) ==
LOC: HO.LAB 07:15
PROVIDERS: PCP Internal Medicine; Visit Provider Internal Medicine
DX: Z00.01 Encounter for general adult medical examination with abnormal findings (principal); E66.09 Other obesity due to excess calories; F31.81 Bipolar II disorder; F43.10 Post-traumatic stress disorder, unspecified; F41.1 Generalized anxiety disorder
CPT/HCPCS: 36415; 80053; 80061; 84443; 85025

== ENCOUNTER 2023-04-24 07:20 | Outpatient (REF) | payer BC, SELFPAY | END 2023-04-24 07:21 | disposition home or self-care (01) | LOC: HO.MAMMO 07:20 | PROVIDERS: PCP Internal Medicine; Visit Provider Internal Medicine | DX: Z12.31 Encounter for screening mammogram for malignant neoplasm of breast (principal) | CPT/HCPCS: 77063; 77067 ==

== ENCOUNTER → 2023-04-24 07:45 | Outpatient (BNV) | payer BC, SELFPAY | PROVIDERS: PCP Internal Medicine; Visit Provider Radiology Diagnostic Radiology | DX: Z12.31 Encounter for screening mammogram for malignant neoplasm of breast (principal) | CPT/HCPCS: 77063; 77067 ==

== ENCOUNTER 2023-06-15 07:41 | Outpatient (AMB) | payer BC, SELFPAY ==
[2023-06-15 08:50] VITALS: BMI 37.4
--- NOTE | 2023-06-15 08:50 | MHC.PC.OV ---
Vital Signs 06/15/23 08:50 Height 5 ft 7 in Weight 239 lb BMI 37.4 Intake Visit Reasons: discuss weight gain/android/[phone] Allergies quetiapine [From Seroquel] Allergy (Mild, Verified 06/15/23 08:51) Swelling aspirin Allergy (Unknown, Verified 06/15/23 08:51) Not supposed to take after gastric bypass Environmental Allergy (Unknown, Uncoded 01/30/23 15:18) Unknown Medication List - Last Reconciled 06/15/23 by Ceferino Chen MD acetaminophen (Tylenol Extra Strength) 500 mg PO Q6H PRN aripiprazole 20 mg PO BEDTIME PRN econazole 1% 1 appl topical DAILY 90 days lidocaine 4% (Aspercreme (lidocaine)) 1 patch topical DAILY PRN valacyclovir 1,000 mg PO DAILY 30 days Tobacco use date assessed: 06/15/23 Dental Screening Dental Screen Date: 06/15/23 Did you have a dental visit in the last 12 months?: Yes Did you have a dental problem in the last 6 months where you did not have access to dental care?: No Was dental information given to patient?: Patient has dentist HPI discuss weight gain/android/[phone] HPI Details Patient is 53-year-old female with BMI of 37 This is a telemedicine conference to talk about weight Patient says that in 2010 she had gastric bypass surgery, and after that she has gained 30 lb Patient is looking for guidance, and referral to weight loss program. Referral placed [facility] Medical History Flank pain Pulmonary embolism Hx of tinea corporis Hx of hemorrhoids Hx of herpes simplex infection History of irregular menstrual bleeding Hx of obesity Surgical History Hx of gastric bypass Hx of hammer toe correction Family History Father HTN (hypertension) Lung cancer Mother HTN (hypertension) Maternal Grandmother Stroke Paternal Grandfather Stomach cancer Paternal Grandmother HTN (hypertension) Glaucoma Diabetes mellitus Paternal Grandmother No problems noted. 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 1. Little interest or pleasure in doing things: not at all 2. Feeling down, depressed, or hopeless: not at all 3. Trouble falling or staying asleep, or sleeping too much: several days 4. Feeling tired or having little energy: not at all 5. Poor appetite or overeating: not at all 6. Feeling bad about yourself - or that you are a failure or have let yourself or your family down: not at all 7. Trouble concentrating on things, such as reading the newspaper or watching television: not at all 8. Moving or speaking so slowly that other people could have noticed. Or the opposite - being so fidgety or restless that you have been moving around a lot more than usual: not at all 9. Thoughts that you would be better off or of hurting yourself in some way: not at all Total score: 1 Depression Screening Interpretation: Negative Depression Screening Done: Yes 20062 - PHQ-9 Billing: Yes Source: Developed by Drs. Dino Marte, Concha Ashraf, Davin Vivas and colleagues, with an educational miladys from [employer]. Thrive Questionnaire Date Thrive assessed: 03/01/22 AUDIT C Alcohol Use Questionnaire (AUDIT-C) 1. How often do you have a drink containing alcohol?: Never 3. How often do you have six or more drinks on one occasion?: Never Total Score: 0 Score Reviewed/Action Taken: Yes FREEDOM-7 AMB Questionnaire FREEDOM-7 Date FREEDOM - 7 assessed: 06/15/23 Feeling nervous, anxious, or on edge: 0 = Not at all Not being able to stop or control worryin = Not at all Worrying too much about different things: 0 = Not at all Trouble relaxin = Not at all Being so restless that it is hard to sit still: 0 = Not at all Becoming easily annoyed or irritable: 0 = Not at all Feeling afraid as if something awful might happen: 0 = Not at all Total FREEDOM-7 score (0-4 normal; 5-9 mild; 10-14 moderate; 15-21 severe): 0 Source: Developed by Drs. Dino Marte, Concha Ashraf, Davin Vivas and colleagues, with an educational miladys from [employer]. FREEDOM-7 Assessment Billing FREEDOM-7 Assessment Tool: FREEDOM-7 Assessment 12013 Review of Systems Const Denies chills and Denies fever(s) ENT Denies epistaxis and Denies nasal discharge Card Denies chest pain Resp Denies chest congestion, Denies cough and Denies hemoptysis GI Denies diarrhea and Denies nausea Skin/Breast Denies rash Neuro Reports no additional complaints Psych Reports no additional complaints Endo Reports no additional complaints Physical exam (Primary Care) Tobacco/Smoking Status: Tobacco use Status Tobacco use date assessed 06/15/23 06/15/23 08:54 Patient Tobacco Use Status Never used Tobacco 06/15/23 08:54 e-Cigarette/Vaping Use Never Used 06/15/23 08:54 PHQ-9: PHQ-9 Score PHQ-9: Total score 1 06/15/23 08:54 Depression Screening Interpretation: Negative Thrive Assessment: Date of Thrive Assessment Date Thrive assessed 03/01/22 06/15/23 08:54 Telehealth Telehealth Location of provider rendering services: practice address Location of patient: address on file Patient Identification confirmed using: Name, : Yes Telehealth method: voice only Patient verbally consented to treatment: Yes Patient verbally consented to billing insurance company: Yes Patient informed of any privacy concerns related to visit: Yes Minutes spent on Phone/Video with Pt.: 12 Assessment and Plan Assessment & Plan (1) Obesity due to excess calories: Code(s): E66.09 - Other obesity due to excess calories Qualifiers: Body mass index: BMI 35.0-35.9 Obesity classification: adult class 2 (BMI 35 - 39.9) Serious obesity comorbidity presence: without serious comorbidity Qualified Code(s): E66.09 - Other obesity due to excess calories; Z68.35 - Body mass index [BMI] 35.0-35.9, adult Plan Patient is 53-year-old female with BMI of 37 This is a telemedicine conference to talk about weight Patient says that in 2010 she had gastric bypass surgery, and after that she has gained 30 lb Patient is looking for guidance, and referral to weight loss program. Referral placed Orders: Referrals Bariatric Surgery Referral E66.09 - Other obesity due to excess calories Coding Level of Care Code Tele Est Pt Level 3 (49453) Diagnoses Class 2 obesity due to excess calories without serious comorbidity with body mass index (BMI) of 35.0 to 35.9 in adult E66.09; Z68.35 Body mass index: BMI 35.0-35.9 Obesity classification: adult class 2 (BMI 35 - 39.9) Serious obesity comorbidity presence: without serious comorbidity Additional Codes FREEDOM-7 Assessment Billing - FREEDOM-7 Assessment Tool: FREEDOM-7 Assessment [id number] ([id number])
== END 2023-06-15 11:54 | disposition home or self-care (01) ==
LOC: HO.HMGC 07:41
PROVIDERS: PCP Internal Medicine; Visit Provider Internal Medicine
DX: E66.09 Other obesity due to excess calories (principal); Z68.35 Body mass index [BMI] 35.0-35.9, adult
CPT/HCPCS: 99442

== ENCOUNTER 2023-12-01 07:36 | Outpatient (AMB) | payer BC, SELFPAY ==
[2023-12-01 07:39] VITALS: BP 120/82; PULSE 87; O2SAT 96; BMI 33.4
--- NOTE | 2023-12-01 07:39 | A.OFFPC_ITS ---
Vital Signs 3 12/01/23 07:39 Height 5 ft 7 in Weight 213 lb BMI 33.4 BP 120/82 Blood Pressure Location Rt brachial Position Sitting Pulse 87 Pulse Source Pulse Oximeter Pulse Oximetry (%) 96 Oxygen Delivery Method Room Air Intake Visit Reasons: Suspicious mole on skin Allergies quetiapine [From Seroquel] Allergy (Mild, Verified 12/01/23 07:42) Swelling aspirin Allergy (Unknown, Verified 12/01/23 07:42) Not supposed to take after gastric bypass Environmental Allergy (Unknown, Uncoded 12/01/23 07:42) Unknown Medication List - Last Reconciled 12/01/23 by Ceferino Chen MD acetaminophen (Tylenol Extra Strength) 500 mg PO Q6H PRN aripiprazole 20 mg PO BEDTIME PRN econazole 1% 1 appl topical DAILY 90 days lidocaine 4% (Aspercreme (lidocaine)) 1 patch topical DAILY PRN valacyclovir 1,000 mg PO DAILY 30 days Tobacco use date assessed: 12/01/23 Dental Screening Dental Screen Date: 12/01/23 Did you have a dental visit in the last 12 months?: Yes Did you have a dental problem in the last 6 months where you did not have access to dental care?: No Was dental information given to patient?: Patient has dentist HPI Suspicious mole on skin 2 HPI0 Details Patient is a 53-year-old female came in today to be evaluated for moles on her body Patient says that she has noticed right side upper shoulder skin moles are getting bigger On examination she has few moles of different sizes and shapes I have placed referral to Dermatology for evaluation Patient is also complaining of feeling lightheaded and short of breath when she goes up the stairs, she says that it has happened few times She has no asthma in is taking no inhalers There are no other symptoms like swelling of ankles or difficulty lying flat EKG done today shows no acute findings 81 beats per minute normal sinus rhythm We talked about well hydration, staying away from heat If it continued to happen patient is to let me know Her lungs are clear today She is requesting refill on omeprazole for chronic GERD I am reducing dose to 20 mg patient has been taking 40 mg for years. [facility] Medical History Flank pain Pulmonary embolism Hx of tinea corporis Hx of hemorrhoids Hx of herpes simplex infection History of irregular menstrual bleeding Hx of obesity Surgical History Hx of gastric bypass Hx of hammer toe correction Family History Father HTN (hypertension) Lung cancer Mother HTN (hypertension) Maternal Grandmother Stroke Paternal Grandfather Stomach cancer Paternal Grandmother HTN (hypertension) Glaucoma Diabetes mellitus Paternal Grandmother No problems noted. 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 1. Little interest or pleasure in doing things: not at all 2. Feeling down, depressed, or hopeless: not at all 3. Trouble falling or staying asleep, or sleeping too much: not at all 4. Feeling tired or having little energy: not at all 5. Poor appetite or overeating: not at all 6. Feeling bad about yourself - or that you are a failure or have let yourself or your family down: not at all 7. Trouble concentrating on things, such as reading the newspaper or watching television: not at all 8. Moving or speaking so slowly that other people could have noticed. Or the opposite - being so fidgety or restless that you have been moving around a lot more than usual: not at all 9. Thoughts that you would be better off or of hurting yourself in some way: not at all Total score: 0 Depression Screening Interpretation: Negative Depression Screening Done: Yes 98252 - PHQ-9 Billing: Yes Source: Developed by Drs. Dino Marte, Concha Ashraf, Davin Vivas and colleagues, with an educational miladys from [email or web address]. Thrive Questionnaire Date Thrive assessed: 12/01/23 I am a: Patient What is your living situation today?: I have a steady place to live Within the past 12 months, did the food you bought not last and you didn't have the money to get more?: Never true Within the past 12 months, did you worry whether your food would run out before you got money to buy more?: Never true Do you have trouble paying for medicines?: No Do you have trouble getting transportation to medical appointments?: No Do you have trouble paying your heating and electricity bill?: No Do you have trouble taking care of your child, family member or friend?: No Do you have trouble with day-to-day activities such as bathing, preparing meals, shopping, managing finances, etc.?: No Are you currently unemployed and looking for a job?: No Are you interested in more education?: No THRIVE Score: 0 AUDIT C Alcohol Use Questionnaire (AUDIT-C) 1. How often do you have a drink containing alcohol?: Never Total Score: 0 FREEDOM-7 AMB Questionnaire FREEDOM-7 Date FREEDOM - 7 assessed: 12/01/23 Feeling nervous, anxious, or on edge: 0 = Not at all Not being able to stop or control worryin = Not at all Worrying too much about different things: 0 = Not at all Trouble relaxin = Not at all Being so restless that it is hard to sit still: 0 = Not at all Becoming easily annoyed or irritable: 0 = Not at all Feeling afraid as if something awful might happen: 0 = Not at all Total FREEDOM-7 score (0-4 normal; 5-9 mild; 10-14 moderate; 15-21 severe): 0 Source: Developed by Drs. Dino Marte, Concha Ashraf, Davin Vivas and colleagues, with an educational miladys from [email or web address]. Review of Systems Const Denies chills and Denies fever(s) ENT Denies epistaxis and Denies nasal discharge Card Denies chest pain Resp Denies chest congestion, Denies cough and Denies hemoptysis GI Denies diarrhea and Denies nausea Skin/Breast Denies rash Neuro Reports no additional complaints Psych Reports no additional complaints Endo Reports no additional complaints Physical exam (Primary Care) Vital Signs: Last Vital Signs Pulse 87 12/01/23 07:39 BP 120/82 12/01/23 07:39 Pulse Ox 96 12/01/23 07:39 Oxygen Delivery Method Room Air 12/01/23 07:39 BMI result Body Mass Index 33.4 Tobacco/Smoking Status: Tobacco use Status Tobacco use date assessed 12/01/23 12/01/23 07:45 Patient Tobacco Use Status Never used Tobacco 12/01/23 07:40 e-Cigarette/Vaping Use Never Used 12/01/23 07:40 PHQ-9: PHQ-9 Score PHQ-9: Total score 0 12/01/23 08:16 Depression Screening Interpretation: Negative Thrive Assessment: Date of Thrive Assessment Date Thrive assessed 12/01/23 12/01/23 07:45 Const General: cooperative, comfortable and no acute distress Orientation/consciousness: patient oriented x3 HENMT Head: Yes normocephalic Eyes General: appearance normal, both eyes and all related structures Neck Neck: Yes supple Resp Effort & Inspection: normal respiratory effort, no cough and no stridor Cardio Rhythm: regular rhythm Heart sounds: S1 normal heart sound present and S2 normal heart sound present Skin General skin exam: turgor normal Full body images: 2 1. Most of different size and shapes Neuro General: patient oriented x3, tone normal and moves all extremities Extrem Right lower extremity: no edema Left lower extremity: no edema Office Procedures EKG [id number], Complete Assessment and Plan Assessment & Plan (1) Lightheadedness: Code(s): R42 - Dizziness and giddiness (2) Shortness of breath: Code(s): R06.02 - Shortness of breath (3) Skin cancer screening: Code(s): Z12.83 - Encounter for screening for malignant neoplasm of skin (4) Chronic GERD: Code(s): K21.9 - Gastro-esophageal reflux disease without esophagitis Plan Patient is a 53-year-old female came in today to be evaluated for moles on her body Patient says that she has noticed right side upper shoulder skin moles are getting bigger On examination she has few moles of different sizes and shapes I have placed referral to Dermatology for evaluation Patient is also complaining of feeling lightheaded and short of breath when she goes up the stairs, she says that it has happened few times She has no asthma in is taking no inhalers There are no other symptoms like swelling of ankles or difficulty lying flat EKG done today shows no acute findings 81 beats per minute normal sinus rhythm We talked about well hydration, staying away from heat If it continued to happen patient is to let me know Her lungs are clear today She is requesting refill on omeprazole for chronic GERD I am reducing dose to 20 mg patient has been taking 40 mg for years. Orders: Orders 2 AMB EKG-In Office Today R06.02 - Shortness of breath, R42 - Dizziness and giddiness Referrals 2 Dermatology Referral Z12.83 - Encounter for screening for malignant neoplasm of skin Medications: New 2 omeprazole 20 mg PO DAILY 90 caps 0RF Coding Level of Care Code Est Pt Level 4 (47429) Diagnoses Lightheadedness R42 Shortness of breath R06.02 Skin cancer screening Z12.83 Chronic GERD K21.9 CPT Codes EKG - CPT: 58540-[id number], Complete ([id number])
== END 2023-12-01 08:34 | disposition home or self-care (01) ==
PROVIDERS: PCP Internal Medicine; Visit Provider Internal Medicine
DX: R42 Dizziness and giddiness (principal); R06.02 Shortness of breath; Z12.83 Encounter for screening for malignant neoplasm of skin; K21.9 Gastro-esophageal reflux disease without esophagitis
CPT/HCPCS: 93000; 99214

== ENCOUNTER 2024-03-15 07:49 | Outpatient (AMB) | payer BC, SELFPAY ==
[2024-03-15 07:51] VITALS: BP 110/82; PULSE 80; O2SAT 100; BMI 30.4
--- NOTE | 2024-03-15 07:51 | MHC.PC.OV ---
Vital Signs 03/15/24 07:51 Height 5 ft 7 in Weight 194 lb BMI 30.4 BP 110/82 Blood Pressure Location Rt brachial Position Sitting Pulse 80 Pulse Source Pulse Oximeter Pulse Oximetry (%) 100 Oxygen Delivery Method Room Air Intake Visit Reasons: Annual PE Allergies quetiapine [From Seroquel] Allergy (Mild, Verified 03/15/24 07:52) Swelling aspirin Allergy (Unknown, Verified 03/15/24 07:52) Not supposed to take after gastric bypass Environmental Allergy (Unknown, Uncoded 03/15/24 07:52) Unknown Medication List - Last Reconciled 03/15/24 by Ceferino Chen MD acetaminophen (Tylenol Extra Strength) 500 mg PO Q6H PRN aripiprazole 20 mg PO BEDTIME PRN econazole 1% 1 appl topical DAILY 90 days lidocaine 4% (Aspercreme (lidocaine)) 1 patch topical DAILY PRN omeprazole 20 mg PO DAILY valacyclovir 1,000 mg PO DAILY 30 days Tobacco use date assessed: 03/15/24 Dental Screening Dental Screen Date: 03/15/24 Did you have a dental visit in the last 12 months?: Yes Did you have a dental problem in the last 6 months where you did not have access to dental care?: No Was dental information given to patient?: Patient has dentist HPI Annual PE HPI Details Physical exam appointment Patient is a 53-year-old female Tells me that she is under stress these days as father is diagnosed with bladder cancer And she has been traveling to [place] frequently Cologuard was February of 2022, negative Patient agreed to have colonoscopy next year Mammogram up-to-date , she will be due in April Pap smear through [facility] Osteoarthritis right knee: Stable BMI is elevated patient is trying to lose weight Patient has diagnosis of bipolar PTSD And anxiety disorder She is seeing psychiatrist and is under treatment doing well Impaired fasting sugar, diet-controlled is recommended Recurrent Herpes genitalia, valacyclovir script sent Labs to be done today [facility] Medical History Flank pain Pulmonary embolism Hx of tinea corporis Hx of hemorrhoids Hx of herpes simplex infection History of irregular menstrual bleeding Hx of obesity Surgical History Hx of gastric bypass Hx of hammer toe correction Family History Father HTN (hypertension) Lung cancer Mother HTN (hypertension) Maternal Grandmother Stroke Paternal Grandfather Stomach cancer Paternal Grandmother HTN (hypertension) Glaucoma Diabetes mellitus Paternal Grandmother No problems noted. 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 1. Little interest or pleasure in doing things: not at all 2. Feeling down, depressed, or hopeless: not at all 3. Trouble falling or staying asleep, or sleeping too much: several days 4. Feeling tired or having little energy: not at all 5. Poor appetite or overeating: not at all 6. Feeling bad about yourself - or that you are a failure or have let yourself or your family down: not at all 7. Trouble concentrating on things, such as reading the newspaper or watching television: not at all 8. Moving or speaking so slowly that other people could have noticed. Or the opposite - being so fidgety or restless that you have been moving around a lot more than usual: not at all 9. Thoughts that you would be better off or of hurting yourself in some way: not at all Total score: 1 Depression Screening Interpretation: Negative Depression Screening Done: Yes 39670 - PHQ-9 Billing: Yes Source: Developed by Drs. Dino Marte, Concha Ashraf, Davin Vivas and colleagues, with an educational miladys from [employer]. Thrive Questionnaire Date Thrive assessed: 03/15/24 I am a: Patient What is your living situation today?: I have a steady place to live Within the past 12 months, did the food you bought not last and you didn't have the money to get more?: Never true Within the past 12 months, did you worry whether your food would run out before you got money to buy more?: Never true Do you have trouble paying for medicines?: No Do you have trouble getting transportation to medical appointments?: No Do you have trouble paying your heating and electricity bill?: No Do you have trouble taking care of your child, family member or friend?: No Do you have trouble with day-to-day activities such as bathing, preparing meals, shopping, managing finances, etc.?: No Are you currently unemployed and looking for a job?: No Are you interested in more education?: No Please select the resources that you would like help with: None Currently or been in a relationship where the following occur: No concerns reported THRIVE Score: 0 AUDIT C Alcohol Use Questionnaire (AUDIT-C) 1. How often do you have a drink containing alcohol?: Never 3. How often do you have six or more drinks on one occasion?: Never Total Score: 0 FREEDOM-7 AMB Questionnaire FREEDOM-7 Date FREEDOM - 7 assessed: 03/15/24 Feeling nervous, anxious, or on edge: 0 = Not at all Not being able to stop or control worryin = Not at all Worrying too much about different things: 0 = Not at all Trouble relaxin = Not at all Being so restless that it is hard to sit still: 0 = Not at all Becoming easily annoyed or irritable: 0 = Not at all Feeling afraid as if something awful might happen: 0 = Not at all Total FREEDOM-7 score (0-4 normal; 5-9 mild; 10-14 moderate; 15-21 severe): 0 Source: Developed by Drs. Dino Marte, Concha Ashraf, Davin Vivas and colleagues, with an educational miladys from [employer]. Review of Systems Const Denies chills, Denies fever(s) and Denies headache(s) Eyes Denies blurry vision ENT Denies headache(s), Denies nasal discharge, Denies nasal obstruction, Denies odynophagia and Denies sinus pain Card Denies chest pain at rest and Denies chest pain with activity Resp Denies cough and Denies hemoptysis GI Denies diarrhea, Denies odynophagia, Denies vomiting and Denies hematemesis Reports as per HPI Musc Denies abnormal gait Skin/Breast Reports as per HPI Neuro Denies Neuro-related abnormal movements, Denies Abnormal speech present, Denies abnormal gait, Denies headache(s) and Denies Sensory deficit (Neuro) Psych Denies mood swings and Denies paranoia Endo Reports as per HPI Angel/Lymph Reports as per HPI Aller/Immun Reports as per HPI Physical exam (Primary Care) Vital Signs: Last Vital Signs Pulse 80 03/15/24 07:51 BP 110/82 03/15/24 07:51 Pulse Ox 100 03/15/24 07:51 Oxygen Delivery Method Room Air 03/15/24 07:51 BMI result Body Mass Index 30.4 Tobacco/Smoking Status: Tobacco use Status Tobacco use date assessed 03/15/24 03/15/24 07:54 Patient Tobacco Use Status Never used Tobacco 03/15/24 07:54 e-Cigarette/Vaping Use Never Used 03/15/24 07:54 PHQ-9: PHQ-9 Score PHQ-9: Total score 1 03/15/24 08:06 Depression Screening Interpretation: Negative Thrive Assessment: Date of Thrive Assessment Date Thrive assessed 03/15/24 03/15/24 07:54 Currently or been in a relationship where the following occur: No concerns reported Const General: cooperative, comfortable and no acute distress Orientation/consciousness: patient oriented x3 HENMT Head: Yes normocephalic and Yes atraumatic Eyes General: appearance normal, both eyes and all related structures Pupils: Equal, round and reactive pupils present EOM: EOMs intact bilaterally Neck Neck: Yes supple and No lymphadenopathy Thyroid: Thyroid normal Lymphatic: no lymphadenopathy noted Resp Effort & Inspection: normal respiratory effort and able to speak in complete sentences Auscultation: clear to auscultation bilaterally Cardio Heart sounds: S1 normal heart sound present and S2 normal heart sound present GI Palpation (GI): Soft to palpation and nontender Auscultation: normal bowel sounds General: Yes no CVA tenderness Back/Spine/Pelvis Back: no CVA tenderness Skin General skin exam: elasticity normal and turgor normal Neuro General: patient oriented x3 and gait normal Cranial nerves: Yes Equal, round and reactive pupils present Speech: No Abnormal speech present Sensory Exam: No Sensory deficit (Neuro) Coordination: tandem gait normal and Romberg test negative Extrem General: Yes normal exam except as noted and No edema Coding Level of Care Code Est Pt Level 3 (37228) Est Pt Prev Care 40-64y(27973) Diagnoses Encounter for general adult medical examination with abnormal findings Z00. Chronic GERD K21.9 PTSD (post-traumatic stress disorder) F43.10 Anxiety, generalized F41.1 Recurrent genital herpes A60.00 Assessment & Plan Assessment & Plan (1) Encounter for general adult medical examination with abnormal findings: Code(s): Z00.01 - Encounter for general adult medical examination with abnormal findings Category: Medical (2) Chronic GERD: Code(s): K21.9 - Gastro-esophageal reflux disease without esophagitis Category: Medical (3) PTSD (post-traumatic stress disorder): Code(s): F43.10 - Post-traumatic stress disorder, unspecified Category: Medical (4) Anxiety, generalized: Code(s): F41.1 - Generalized anxiety disorder Category: Medical (5) Recurrent genital herpes: Code(s): A60.00 - Herpesviral infection of urogenital system, unspecified Category: Medical Plan Physical exam appointment Patient is a 53-year-old female Tells me that she is under stress these days as father is diagnosed with bladder cancer And she has been traveling to [place] frequently Cologuard was February of 2022, negative Patient agreed to have colonoscopy next year Mammogram up-to-date , she will be due in April Pap smear through [facility] Osteoarthritis right knee: Stable BMI is elevated patient is trying to lose weight Patient has diagnosis of bipolar PTSD And anxiety disorder She is seeing psychiatrist and is under treatment doing well Impaired fasting sugar, diet-controlled is recommended Recurrent Herpes genitalia, valacyclovir script sent Labs to be done today Orders: Orders Hemoglobin A1c Today F41.1 - Generalized anxiety disorder, F43.10 - Post-traumatic stress disorder, unspecified, K21.9 - Gastro-esophageal reflux disease without esophagitis, Z00.01 - Encounter for general adult medical examination with abnormal findings LDL Cholesterol Direct Today F41.1 - Generalized anxiety disorder, F43.10 - Post-traumatic stress disorder, unspecified, K21.9 - Gastro-esophageal reflux disease without esophagitis, Z00.01 - Encounter for general adult medical examination with abnormal findings Complete Blood Count Auto Diff Today F41.1 - Generalized anxiety disorder, F43.10 - Post-traumatic stress disorder, unspecified, K21.9 - Gastro-esophageal reflux disease without esophagitis, Z00.01 - Encounter for general adult medical examination with abnormal findings Comprehensive Met. Panel Today F41.1 - Generalized anxiety disorder, F43.10 - Post-traumatic stress disorder, unspecified, K21.9 - Gastro-esophageal reflux disease without esophagitis, Z00.01 - Encounter for general adult medical examination with abnormal findings Medications: Refilled valacyclovir 1,000 mg PO DAILY 30 tabs 0RF 30 days
== END 2024-03-15 08:18 | disposition home or self-care (01) ==
PROVIDERS: PCP Internal Medicine; Visit Provider Internal Medicine
DX: Z00.00 Encounter for general adult medical examination without abnormal findings (principal); K21.9 Gastro-esophageal reflux disease without esophagitis; F43.10 Post-traumatic stress disorder, unspecified; F41.1 Generalized anxiety disorder; A60.00 Herpesviral infection of urogenital system, unspecified

== ENCOUNTER → 2024-03-15 07:49 | Outpatient (BNVA) | payer BC, SELFPAY | PROVIDERS: PCP Internal Medicine; Visit Provider Internal Medicine | DX: Z00.01 Encounter for general adult medical examination with abnormal findings (principal); K21.9 Gastro-esophageal reflux disease without esophagitis; F43.10 Post-traumatic stress disorder, unspecified; F41.1 Generalized anxiety disorder; A60.00 Herpesviral infection of urogenital system, unspecified; M17.11 Unilateral primary osteoarthritis, right knee | CPT/HCPCS: 96127 ==

== ENCOUNTER 2024-03-15 08:19 | Outpatient (REF) | payer BC, SELFPAY ==
[2024-03-15 10:07] LABS: MANUAL DIFF FLAG NO
[2024-03-15 10:15] LABS: Basophils Percent Auto 0.4 % (0-2); Eosinophils Absolute Auto 0.2 X10*3/uL (0.0-0.4); Eosinophils Percent Auto 2.2 % (0-4); Hematocrit 41.1 % (37.0-47.0); Hemoglobin 13.1 g/dl (12.0-16.0); Imm Gran Abs Auto 0.01 X10*3/uL (0.00-0.03); Imm Gran Pct Auto 0.1 % (0.0-0.4); Lymphocytes Absolute Auto 2.4 X10*3/uL (1.2-4.9); Lymphocytes Percent Auto 32.5 % (20-40); Mean Corpuscular HGB Conc 31.9 g/dl (31.0-35.0); Mean Corpuscular Hemoglobin 27.4 pg (27.0-33.0); Mean Platelet Volume 9.9 fL (9.4-12.3); Monocytes Absolute Auto 0.6 X10*3/uL (0.1-1.2); Monocytes Percent Auto 8.3 % (2-11); Neutrophils Absolute Auto 4.2 x10*3/uL (2.0-8.3); Neutrophils Percent Auto 56.5 % (45-73); Platelet Count 368 X10*3/uL (160-400); Red Blood Count 4.78 X10*6/uL (4.20-5.50); Red Cell Distribution Width 14.2 % (11.0-16.0); White Blood Count 7.4 X10*3/uL (4.8-10.8)
[2024-03-15 10:22] LABS: Estimated Average Glucose 103 mg/dL; Hemoglobin A1C 110.1794 umol/L; Hemoglobin A1c % 5.2 % (<6.0); Total Hemoglobin (HGBA1C) 3349.0898 umol/L
[2024-03-15 10:42] LABS: Alanine Aminotransferase 25 U/L (0-31); Albumin Level 4.4 g/dL (3.5-5.0); Alkaline Phosphatase 79 U/L (39-117); Anion Gap 11 (12-20); Aspartate Amino Transferase 24 U/L (5-31); Bilirubin Total 0.5 mg/dL (0.0-1.0); Blood Urea Nitrogen 16 mg/dL (9-16); Calcium 9.6 mg/dL (8.4-10.2); Carbon Dioxide 27 mmol/L (22-29); Chloride 105 mmol/L (96-108); Estimated Glomerular Filt Rate > 60; Glucose Random 78 mg/dL (60-115); Potassium 3.7 mmol/L (3.3-5.1); Sodium 139 mmol/L (135-145); Total Protein 7.6 g/dL (6.5-8.0)
[2024-03-17 13:08] LABS: LDL Cholesterol Direct 123 mg/dL (<100)
== END 2024-03-15 08:20 | disposition home or self-care (01) ==
LOC: HO.HMGCLDS 08:19
PROVIDERS: PCP Internal Medicine; Visit Provider Internal Medicine
DX: Z00.01 Encounter for general adult medical examination with abnormal findings (principal); K21.9 Gastro-esophageal reflux disease without esophagitis; F43.10 Post-traumatic stress disorder, unspecified; F41.1 Generalized anxiety disorder
CPT/HCPCS: 36415; 80053; 83036; 83721; 85025

== ENCOUNTER 2024-04-29 07:24 | Outpatient (REF) | payer BC, SELFPAY ==
--- NOTE | ~2024-04-29 | MM_ITS ---
EXAMINATION: MM SCREENING DIGITAL BREAST TOMOSYNTHESIS, BILATERAL CLINICAL INFORMATION: Screening. Asymptomatic. COMPARISON: Mammography: Comparison is made with available priors TECHNIQUE: Digital breast mammography with tomosynthesis is performed in both the craniocaudal and mediolateral oblique views along with computer-aided detection (CAD). FINDINGS: There are scattered areas of fibroglandular density (ACR BI-RADS breast composition Category b). There are no significant masses, abnormal calcifications, or other abnormalities. MM/MM tomosynthesis screening BI IMPRESSION: No mammographic evidence of malignancy. ASSESSMENT: BI-RADS BI-RADS 1 - Negative RECOMMENDATION: Routine annual mammography screening. 1 year F/U This examination should not preclude the clinical evaluation of a suspicious palpable abnormality. This patient's information was entered into a reminder system with a target due date for their next mammogram. Electronically signed by: Christy Rollins DO 05/03/2024 01:12 PM [facility]
== END 2024-04-29 07:25 | disposition home or self-care (01) ==
LOC: HO.MAMMO 07:24
PROVIDERS: PCP Internal Medicine; Visit Provider Internal Medicine
DX: Z12.31 Encounter for screening mammogram for malignant neoplasm of breast (principal)
CPT/HCPCS: 77063; 77067

== ENCOUNTER → 2024-04-29 07:30 | Outpatient (BNV) | payer BC, SELFPAY | PROVIDERS: PCP Internal Medicine; Visit Provider Internal Medicine | DX: Z12.31 Encounter for screening mammogram for malignant neoplasm of breast (principal) | CPT/HCPCS: 77063; 77067 ==

== ENCOUNTER 2024-08-20 09:00 | Outpatient (AMB) | payer BC, SELFPAY ==
[2024-08-20 09:25] VITALS: BP 108/76; PULSE 102; O2SAT 97; BMI 28.7
--- NOTE | 2024-08-20 09:25 | MHC.PC.OV ---
Vital Signs 08/20/24 09:25 Height 5 ft 7 in Weight 183 lb 5 oz BMI 28.7 BP 108/76 Blood Pressure Location Lt brachial Position Sitting Pulse 102 H Pulse Source Pulse Oximeter Pulse Oximetry (%) 97 Oxygen Delivery Method Room Air Intake Visit Reasons: pain in right arm Allergies quetiapine [From Seroquel] Allergy (Mild, Verified 08/20/24 09:26) Swelling aspirin Allergy (Unknown, Verified 08/20/24 09:26) Not supposed to take after gastric bypass Environmental Allergy (Unknown, Uncoded 03/15/24 07:52) Unknown Medication List - Last Reconciled 08/20/24 by Ceferino Chen MD acetaminophen (Tylenol Extra Strength) 500 mg PO Q6H PRN aripiprazole 20 mg PO BEDTIME PRN econazole nitrate 1% 1 appl topical DAILY 90 days lidocaine 4% (Aspercreme (lidocaine)) 1 patch topical DAILY PRN omeprazole 20 mg PO DAILY valacyclovir 1,000 mg PO DAILY 30 days Tobacco use date assessed: 08/20/24 Dental Screening Dental Screen Date: 08/20/24 Did you have a dental visit in the last 12 months?: Yes Did you have a dental problem in the last 6 months where you did not have access to dental care?: No Was dental information given to patient?: Patient has dentist HPI pain in right arm HPI Details History - The patient is a 54-year-old female presenting for follow-up regarding right elbow pain radiating into the forearm, suspected to be neuropathic in nature. - The symptoms started approximately three weeks prior and have been described as a shooting pain, aliya to the sensation of striking the funny bone. - Pain is intermittent and can be triggered by specific arm movements, notably when attempting to rest the elbow or in certain positions during the night, causing sleep disturbances. - There is no associated tingling in the hand, and symptoms are slightly alleviated by the use of lidocaine patches. - Background medical history includes a past diagnosis of pre-diabetes identified in 2022, with recent labs indicating normal glucose levels, suggesting stabilization. - The patient?s LDL cholesterol level is mildly elevated at 123 mg/dL, noted to be slightly higher than previous measures. 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 Start with one capsule, and after a week, assess the need to increase to two capsules if relief is inadequate. - Attend an upcoming EMG study to ascertain the nerve involvement and severity. - Follow up with a telephone consultation to discuss the EMG results and medication efficacy. - Continue monitoring diet to maintain current glucose levels, as past history indicated pre-diabetes. - A pharmacy refill of omeprazole and valacyclovir has been sent. Review of Systems - General: No fever no chills - Neurological: No headaches no dizziness - Ear nose throat: No sore throat no hearing difficulty no ear pain - Cardiovascular: No syncope, no chest pain, no palpitations - Gastrointestinal: No nausea vomiting or diarrhea - Endocrine: No polyuria polydipsia no heat intolerance - Genitourinary: No dysuria , no blood in urine Physical Exam General: No acute distress HEENT: No acute findings Neck: Supple Respiratory system: Able to talk in full sentences, no audible wheeze Cardiovascular: S1-S2 regular in rate and rhythm Gastrointestinal: No pain Extremities: Shooting pain in the right elbow into the forearm, full range of motion, no tingling in the hand, slight discomfort with pressure over lateral part of elbow, wrist and fingers with full range of motion neurovascular intact 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 1. Little interest or pleasure in doing things: not at all 2. Feeling down, depressed, or hopeless: not at all 3. Trouble falling or staying asleep, or sleeping too much: several days 4. Feeling tired or having little energy: several days 5. Poor appetite or overeating: not at all 6. Feeling bad about yourself - or that you are a failure or have let yourself or your family down: not at all 7. Trouble concentrating on things, such as reading the newspaper or watching television: not at all 8. Moving or speaking so slowly that other people could have noticed. Or the opposite - being so fidgety or restless that you have been moving around a lot more than usual: not at all 9. Thoughts that you would be better off or of hurting yourself in some way: not at all Total score: 2 Depression Screening Interpretation: Negative Depression Screening Done: Yes 93552 - PHQ-9 Billing: Yes Source: Developed by Drs. Dino Marte, Concha Ashraf, Davin Vivas and colleagues, with an educational miladys from [employer]. Thrive Questionnaire Date Thrive assessed: 08/20/24 I am a: Patient What is your living situation today?: I have a steady place to live Within the past 12 months, did the food you bought not last and you didn't have the money to get more?: Never true Within the past 12 months, did you worry whether your food would run out before you got money to buy more?: Never true Do you have trouble paying for medicines?: No Do you have trouble getting transportation to medical appointments?: No Do you have trouble paying your heating and electricity bill?: No Do you have trouble taking care of your child, family member or friend?: No Do you have trouble with day-to-day activities such as bathing, preparing meals, shopping, managing finances, etc.?: No Are you currently unemployed and looking for a job?: No Are you interested in more education?: No Please select the resources that you would like help with: None Currently or been in a relationship where the following occur: No concerns reported THRIVE Score: 0 AUDIT C Alcohol Use Questionnaire (AUDIT-C) 1. How often do you have a drink containing alcohol?: Never 3. How often do you have six or more drinks on one occasion?: Never Total Score: 0 Score Reviewed/Action Taken: Yes FREEDOM-7 AMB Questionnaire FREEDOM-7 Date FREEDOM - 7 assessed: 08/20/24 Feeling nervous, anxious, or on edge: 0 = Not at all Not being able to stop or control worryin = Not at all Worrying too much about different things: 0 = Not at all Trouble relaxin = Not at all Being so restless that it is hard to sit still: 0 = Not at all Becoming easily annoyed or irritable: 0 = Not at all Feeling afraid as if something awful might happen: 0 = Not at all Total FREEDOM-7 score (0-4 normal; 5-9 mild; 10-14 moderate; 15-21 severe): 0 Source: Developed by Drs. Dino Marte, Concha Ashraf, Davin Vivas and colleagues, with an educational miladys from [employer]. FREEDOM-7 Assessment Billing FREEDOM-7 Assessment Tool: FREEDOM-7 Assessment 78258 Physical exam (Primary Care) Vital Signs: Last Vital Signs Pulse 102 H 08/20/24 09:25 BP 108/76 08/20/24 09:25 Pulse Ox 97 08/20/24 09:25 Oxygen Delivery Method Room Air 08/20/24 09:25 BMI result Body Mass Index 28.7 Tobacco/Smoking Status: Tobacco use Status Tobacco use date assessed 08/20/24 08/20/24 09:28 Patient Tobacco Use Status Never used Tobacco 08/20/24 09:28 e-Cigarette/Vaping Use Never Used 08/20/24 09:28 PHQ-9: PHQ-9 Score PHQ-9: Total score 2 08/20/24 09:38 Depression Screening Interpretation: Negative Thrive Assessment: Date of Thrive Assessment Date Thrive assessed 08/20/24 08/20/24 09:30 Currently or been in a relationship where the following occur: No concerns reported Coding Level of Care Code Est Pt Level 3 (22256) Diagnoses Paresthesia of right arm R20.2 Chronic GERD K21.9 Recurrent genital herpes A60.00 Additional Codes FREEDOM-7 Assessment Billing - FREEDOM-7 Assessment Tool: FREEDOM-7 Assessment 45772 ([id number]) PHQ-9 - 52973 - PHQ-9 Billing: Yes ([id number]) Assessment & Plan Assessment & Plan (1) Paresthesia of right arm: Code(s): R20.2 - Paresthesia of skin Category: Medical (2) Chronic GERD: Code(s): K21.9 - Gastro-esophageal reflux disease without esophagitis Category: Medical (3) Recurrent genital herpes: Code(s): A60.00 - Herpesviral infection of urogenital system, unspecified Category: Medical Plan History - The patient is a 54-year-old female presenting for follow-up regarding right elbow pain radiating into the forearm, suspected to be neuropathic in nature. - The symptoms started approximately three weeks prior and have been described as a shooting pain, aliya to the sensation of striking the funny bone. - Pain is intermittent and can be triggered by specific arm movements, notably when attempting to rest the elbow or in certain positions during the night, causing sleep disturbances. - There is no associated tingling in the hand, and symptoms are slightly alleviated by the use of lidocaine patches. - Background medical history includes a past diagnosis of pre-diabetes identified in 2022, with recent labs indicating normal glucose levels, suggesting stabilization. - The patient?s LDL cholesterol level is mildly elevated at 123 mg/dL, noted to be slightly higher than previous measures. 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 Start with one capsule, and after a week, assess the need to increase to two capsules if relief is inadequate. - Attend an upcoming EMG study to ascertain the nerve involvement and severity. - Follow up with a telephone consultation to discuss the EMG results and medication efficacy. - Continue monitoring diet to maintain current glucose levels, as past history indicated pre-diabetes. - A pharmacy refill of omeprazole and valacyclovir has been sent. Orders: Orders NE nerve conduction velocity Today R20.2 - Paresthesia of skin NE electromyogram (EMG) Today R20.2 - Paresthesia of skin Medications: New gabapentin 200 mg (2 x 100 mg) PO BEDTIME 60 caps 0RF Refilled omeprazole 20 mg PO DAILY 90 caps 0RF valacyclovir 1,000 mg PO DAILY 30 tabs 0RF 30 days
--- OUTSIDE RECORDS SUMMARY | 2024-08-20 09:43 | XMS_ITS | Clinical Summary ---
Author Organization [facility] Address [address] [place] [address] Care Team Providers Care Patient Placement Coordinator Name Role Phone Unavailable Primary Care Provider Unavailabl e Social History Tobacco Use Types Packs/Day Years Used Date Smoking Tobacco: Never Assessed Sex and Gender Information Value Date Recorded Sex Assigned at Not on file Gender Identity Not on file Sexual Orientation Not on file Plan of Treatment Health Maintenance Due Date Last Done Comments Hepatitis C Virus Screening 1971 HIV Screening 1984 DTaP/Tdap/Td Vaccines (1 - Tdap) 1990 Hepatitis B Vaccines (1 of 3 - 19+ 3-dose series) 1990 Pneumococcal Vaccines 50+ (1 of 1 - PCV) 2021 Zoster (Shingles) Vaccine (1 of 2) 2021 COVID-19 Vaccine ( - 2023-2 5 season) 2024 Pneumococcal Vaccine: Pediat shahida (0-5 Years) and At-Risk Patients (6 to 49 Years) Aged Out No longer eligible b ased on patient's age to complete this topic
== END 2024-08-20 10:10 | disposition home or self-care (01) ==
LOC: HO.HMCC 09:01
PROVIDERS: PCP Internal Medicine; Visit Provider Internal Medicine
DX: R20.2 Paresthesia of skin (principal); K21.9 Gastro-esophageal reflux disease without esophagitis; A60.00 Herpesviral infection of urogenital system, unspecified

== ENCOUNTER → 2024-08-20 09:00 | Outpatient (BNVA) | payer BC, SELFPAY | PROVIDERS: PCP Internal Medicine; Visit Provider Internal Medicine | DX: R20.2 Paresthesia of skin (principal); K21.9 Gastro-esophageal reflux disease without esophagitis; A60.00 Herpesviral infection of urogenital system, unspecified | CPT/HCPCS: 96127 ==

== ENCOUNTER 2025-01-09 14:43 | Outpatient (AMB) | payer BC, SELFPAY ==
--- OUTSIDE RECORDS SUMMARY | 2025-01-09 14:47 | XMS_ITS | Clinical Summary ---
Author Organization [facility] Address [address] [place] [address] Care Team Providers Care Felt Cementer Name Role Phone Unavailable Primary Care Provider Unavailabl e Social History Tobacco Use Types Packs/Day Years Used Date Smoking Tobacco: Never Assessed Comments Unknown Sex and Gender Information Value Date Recorded Sex Assigned at Not on file Legal Sex Female 6:40 PM EST Gender Identity Not on file Sexual Orientation Not on file Plan of Treatment Health Maintenance Due Date Last Done Comments Hepatitis C Virus Screening 1971 HIV Screening 1984 DTaP/Tdap/Td Vaccines (1 - Tdap) 1990 Hepatitis B Vaccines (1 of 3 - 19+ 3-dose series) 04/21 Pneumococcal Vaccines 50+ (1 of 1 - PCV) 2021 Zoster (Shingles) Vaccine (1 of 2) 2021 COVID-19 Vaccine ( - 2023- season) 2024
[2025-01-09 15:07] VITALS: BP 112/84; BMI 29.0
--- NOTE | 2025-01-09 15:07 | MHC.OFFVIS ---
Vital Signs 01/09/25 15:07 Height 5 ft 7 in Weight 185 lb BMI 29.0 BP 112/84 Intake Visit Reasons: annual Asp Web Developer Required: No Lift Truck Operator: Lift Truck Operator Present (eugene) Accompanied by: Self / Same As Patient Allergies quetiapine (From Seroquel) Allergy (Mild, Verified 01/09/25 15:08) Swelling aspirin Allergy (Unknown, Verified 01/09/25 15:08) Not supposed to take after gastric bypass Environmental Allergy (Unknown, Uncoded 03/15/24 07:52) Unknown Post menopausal: Yes HPI Comments Details: Presenting for annual exam. No complaints. Last Pap/HPV was negative in 02/08 Last Mammogram was BI-RADS 1 in 05/14 Last screening Colonoscopy was 3 years ago [facility] Medical History Flank pain Pulmonary embolism Hx of tinea corporis Hx of hemorrhoids Hx of herpes simplex infection History of irregular menstrual bleeding Hx of obesity Surgical History Hx of gastric bypass Hx of hammer toe correction Family History Father HTN (hypertension) Lung cancer Bladder cancer Mother HTN (hypertension) Maternal Grandmother Stroke Paternal Grandfather Stomach cancer Paternal Grandmother HTN (hypertension) Glaucoma Diabetes mellitus Paternal Aunt Breast cancer Thyroid cancer Other Mental health disorder Substance use disorder Social History Household Members: Significant Other Housing: Apartment Alcohol intake: former Patient Tobacco Use Status: Never used Tobacco e-Cigarette/Vaping Use: Never Used Second Hand Smoke Exposure: No Current occupational status: employed 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[employer] Current occupational exposures/hazards: No Sexually active: Yes Sexual orientation: Straight/Heterosexual Gender identity: Female Cognitive needs: No Hearing needs: No Vision needs: Yes Female Reproductive History Menstrual Age of Menarche: 15 Total pregnancies: 1 Ab induced: 1 History of abnormal pap smear: Yes (30+ years ago) History of abnormal mammogram: No Review of Systems Const All systems reviewed & are unremarkable except as noted in HPI and below Card Reports as per HPI Resp Reports as per HPI GI Reports as per HPI and Reports no additional complaints Reports as per HPI Physical Exam Vital Signs: BMI result Body Mass Index 29.0 Const General: cooperative, healthy appearing and comfortable Chest Chest palpation & inspection: normal inspection of the chest and normal palpation of entire chest wall Breast/axilla inspection: normal inspection of the breasts and normal inspection of the axillae Breast/axilla palpation: normal palpation of the breasts, normal palpation of the axillae and no axillary lymphadenopathy Resp Effort & Inspection: normal respiratory effort Auscultation: clear to auscultation bilaterally Percussion: percussion normal Cardio Palpation: normal PMI Rate: regular rate Rhythm: regular rhythm Heart sounds: no murmurs and no rubs Peripheral pulses: Peripheral pulses 2+ throughout GI Inspection: Yes normal to inspection Palpation (GI): Soft to palpation, nontender, no guarding, not rigid and No hepatosplenomegaly present Percussion: Yes normal to percussion Auscultation: normal bowel sounds Rectal Exam - Female: deferred General: Yes bladder normal to palpation External Female Exam: No lesion Speculum Exam - Vagina: normal appearance of the vagina, normal palpation, normal vaginal discharge and not erythematous Speculum Exam - Cervix: normal appearance of the cervix and normal palpation Bimanual exam- vagina & uterus: normal bimanual exam, normal palpation, uterine size normal, bladder normal to palpation, consistency normal and normal palpation Bimanual Exam- Adnexa, other: normal adnexae, no masses and no tenderness Assessment & Plan Assessment & Plan (1) Well woman exam: Code(s): Z01.419 - Encounter for gynecological examination (general) (routine) without abnormal findings Category: Medical Plan: Co testing done. Counseled the patient about the recommended dietary allowance of 1200 mg of Calcium & 600 IU of vitamin D. Instructions given to the patient to schedule next screening Mammogram in 05/15. The patient was referred to GI for screening colonoscopy . The patient was instructed to perform monthly self-breast exams and schedule annual exam in a year. All questions answered and the patient verbalized understanding. Orders: Referrals Gastroenterology Referral Z12.11 - Encounter for screening for malignant neoplasm of colon Coding Level of Care Code Est Pt Prev Care 40-64y(20917) Diagnoses Well woman exam Z01.419
== END 2025-01-09 15:31 | disposition home or self-care (01) ==
LOC: HO.HWS 14:43
PROVIDERS: PCP Internal Medicine; Visit Provider Obstetrics & Gynecology
DX: Z01.419 Encounter for gynecological examination (general) (routine) without abnormal findings (principal)
CPT/HCPCS: 99396; 99459

== ENCOUNTER 2025-01-09 14:43 | Outpatient (REF) | payer BC, SELFPAY | END 2025-01-09 14:44 | disposition home or self-care (01) | LOC: HO.LNP 14:43 | PROVIDERS: PCP Internal Medicine; Visit Provider Obstetrics & Gynecology | DX: Z01.419 Encounter for gynecological examination (general) (routine) without abnormal findings (principal); Z12.11 Encounter for screening for malignant neoplasm of colon; Z11.51 Encounter for screening for human papillomavirus (HPV) | CPT/HCPCS: 87626; 88175 ==

== ENCOUNTER 2025-02-11 07:36 | Outpatient (AMB) | payer BC, SELFPAY ==
--- NOTE | 2025-02-11 07:37 | AM.OFFWIN_ITS ---
Intake Vital Signs 02/11/25 07:38 Height 5 ft 7 in Weight 197 lb BMI 30.9 BP 124/72 Blood Pressure Location Lt brachial Position Sitting Respiration 16 Pulse 70 Pulse Source Pulse Oximeter Temp 98.3 F Temp Source Oral Pulse Oximetry (%) 95 Oxygen Delivery Method Room Air Intake Visit Reasons: EP LT ear pain, painful burning rash on lt face Intake Note: Pt is here today c/o Lt ear mcginnis and painful rash Lt side of face since Monday Patient Tobacco Use Status: Never used Tobacco Allergies quetiapine (From Intellectual Investmentsoquel) Allergy (Mild, Verified 02/11/25 07:38) Swelling aspirin Allergy (Unknown, Verified 02/11/25 07:38) Not supposed to take after gastric bypass Environmental Allergy (Unknown, Uncoded 02/11/25 07:38) Unknown HPI HPI Comments History of Present Illness Details History - The patient is a 54-year-old female pr esenting with a facial rash and pain suspected to be shingles. - The patient reports that her left ear started bothering her 3 days ago, followed by a sensation of pins and needles and the development of blotches on her face by yesterday. - She describes the pain as feeling like electricity zinging through the blotches, with associated pain in her ear and teeth. - The patient has a history of using violet apentin for elbow pain, prescribed by Dr. Chen, and has lidocaine patches for pain management. - She has not taken acyclovir in about a year, which was previously prescribed for another condition. Physical Exam General: Cooperative, healthy appearing, comfortable, no acute distress and well developed Orientation: Patient oriented x3 Limitations: No limitations Head: Normal to inspection Ears: Hearing grossly normal bilaterally, left EAC with erythema, left TM normal Nose: Normal External nose present Face and sinus: Vesicular rash with an erythematous base on the left mid cheek and to the left of the mouth Eyes: Appearance normal, both eyes and all related structures Neck: Normal visual inspection and Yes full ROM Respiratory: Normal respiratory effort and able to speak in complete sentences. Skin: As above Neuro: Patient oriented x3 Review of Systems - Dermatological: Reports facial rash wi th pain described as electricity zinging through the blotches - Neurological: Reports pain in the ear and teeth All systems reviewed and are unremarkable except as noted in HPI [facility] Medical History Flank pain Pulmonary embolism Hx of tinea corporis Hx of hemorrhoids Hx of herpes simplex infection History of irregular menstrual bleeding Hx of obesity Surgical History Hx of gastric bypass Hx of hammer toe correction Family History Father HTN (hypertension) Lung cancer Bladder cancer Mother HTN (hypertension) Maternal Grandmother Stroke Paternal Grandfather Stomach cancer Paternal Grandmother HTN (hypertension) Glaucoma Diabetes mellitus Paternal Aunt Breast cancer Thyroid cancer Other Mental health disorder Substance use disorder Social History Household Members: Significant Other Housing: Apartment Alcohol intake: former Patient Tobacco Use Status: Never used Tobacco e-Cigarette/Vaping Use: Never Used Second Hand Smoke Exposure: No Current occupational status: employed 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[employer] Current occupational exposures/hazards: No Sexual orientation: Straight/Heterosexual Gender identity: Female Cognitive needs: No Hearing needs: No Vision needs: Yes Female Reproductive History Menstrual Age of Menarche: 15 Review of Systems Const All systems reviewed & are unremarkable except as noted in HPI and below Physical Exam Vital Signs: Last Vital Signs Temp 98.3 F 02/11/25 07:38 Pulse 70 02/11/25 07:38 Resp 16 02/11/25 07:38 BP 124/72 02/11/25 07:38 Pulse Ox 95 02/11/25 07:38 Oxygen Delivery Method Room Air 02/11/25 07:38 BMI result Body Mass Index 30.9 Assessment & Plan Assessment & Plan (1) Shingles rash: Code(s): B02.9 - Zoster without complications Qualifiers: Herpes zoster complications: without complications Qualified Code(s): B02.9 - Zoster without complications Plan: Plan - Prescribed valacyclovir 1 gram every 8 hours for 7 days to manage herpes zoster. - Advised the use of gabapentin for nerve pain management, with caution against abrupt discontinuation to avoid withdrawal symptoms if she ends up taking it regularly. She has this medication at home as she was prescribed it by her PCP last year. Recommended she only take 100mg Q8H, as needed. - Recommended cold cloths for additional symptomatic relief of pain. - Provided a note for work absence for 2 days to allow time for medication initiation and recovery. Patient was informed and verbally consented to the use of an ambient scribe for clinic note documentation during this visit. Medications: New valacyclovir 1,000 mg PO Q8H 21 tabs 0RF 7 days Discontinued valacyclovir Discontinued Reason: Doctor's Order 1,000 mg PO DAILY 30 days 30 tabs 0RF Coding Level of Care Code Est Pt Level 3 (82676) Diagnoses Herpes zoster without complication B02.9 Herpes zoster complications: without complications
[2025-02-11 07:38] VITALS: BP 124/72; PULSE 70; RESP 16; TEMP 36.8; O2SAT 95; BMI 30.9
--- OUTSIDE RECORDS SUMMARY | 2025-02-11 07:38 | XMS_ITS | Clinical Summary ---
Author Organization [facility] Address [address] [place] [address] Care Team Providers Care Customer Service Consultant Name Role Phone Unavailable Primary Care Provider [...] Vaccine (1 of 2) 2021 COVID-19 Vaccine (1 - season) 2025
== END 2025-02-11 08:00 | disposition home or self-care (01) ==
PROVIDERS: PCP Internal Medicine; Visit Provider Physician Assistant
DX: B02.9 Zoster without complications (principal)

== ENCOUNTER 2025-02-12 10:40 | Outpatient (AMB) | payer BC, SELFPAY ==
[2025-02-12 10:49] VITALS: BP 118/72; PULSE 73; TEMP 36.7; O2SAT 97; BMI 30.6
--- NOTE | 2025-02-12 10:49 | MHC.PC.OV ---
Vital Signs 02/12/25 10:49 Height 5 ft 7 in Weight 195 lb 8 oz BMI 30.6 BP 118/72 Blood Pressure Location Lt brachial Position Sitting Pulse 73 Pulse Source Pulse Oximeter Temp 98.0 F Temp Source Oral Pulse Oximetry (%) 97 Intake Visit Reasons: sick visit Body Technician Required: No Accompanied by: Self / Same As Patient Allergies quetiapine (From Seroquel) Allergy (Mild, Verified 02/12/25 10:50) Swelling aspirin Allergy (Unknown, Verified 02/12/25 10:50) Not supposed to take after gastric bypass Environmental Allergy (Unknown, Uncoded 02/11/25 07:38) Unknown Medication List - Last Reconciled 02/12/25 by Ceferino Chen MD acetaminophen (Tylenol Extra Strength) 500 mg PO Q6H PRN aripiprazole 20 mg PO BEDTIME PRN econazole nitrate 1% 1 appl topical DAILY 90 days valacyclovir 1,000 mg PO Q8H 7 days Tobacco use date assessed: 08/20/24 Dental Screening Dental Screen Date: 08/20/24 HPI sick visit HPI Details History of Present Illness The patient is a 54-year-old female presenting with shingles. Shingles: - The rash initiated on the left side of the face. - The patient initially sought treatment on February 11 and was prescribed valacyclovir - The treatment extended over seven days. - Patient reported experiencing significant burning. - She was previously given gabapentin for her elbow pain, which she continues to take. - She mentioned persistent pain impacting her sleep. - She reported a new symptom of muffled hearing on the right side upon waking the day prior to the visit. - The patient expressed nervousness about these symptoms. Problem List - Herpes Zoster (Shingles) - Pain associated with shinles (post-herpetic neuralgia) - Muffled hearing (right side) potentially related to shingles Patient Instructions - Continue with the current medication regimen. - Finish the seven-day course of valacyclovir. - Take gabapentin 300 mg twice daily. - start Medrol Dosepak - Follow up as previously scheduled for the annual checkup, or sooner if symptoms worsen or persist. 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 [facility] Medical History Flank pain Pulmonary embolism Hx of tinea corporis Hx of hemorrhoids Hx of herpes simplex infection History of irregular menstrual bleeding Hx of obesity Surgical History Hx of gastric bypass Hx of hammer toe correction Family History Father HTN (hypertension) Lung cancer Bladder cancer Mother HTN (hypertension) Maternal Grandmother Stroke Paternal Grandfather Stomach cancer Paternal Grandmother HTN (hypertension) Glaucoma Diabetes mellitus Paternal Aunt Breast cancer Thyroid cancer Other Mental health disorder Substance use disorder Social History Household Members: Significant Other Housing: Apartment Alcohol intake: former Patient Tobacco Use Status: Never used Tobacco e-Cigarette/Vaping Use: Never Used Second Hand Smoke Exposure: No Current occupational status: employed 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 Current occupational exposures/hazards: No Sexual orientation: Straight/Heterosexual Gender identity: Female Cognitive needs: No Hearing needs: No Vision needs: Yes Female Reproductive History Menstrual Age of Menarche: 15 Questionnaire PHQ-9 Over the last 2 weeks, how often have you been bothered by any of the following problems? 1. Little interest or pleasure in doing things: not at all 2. Feeling down, depressed, or hopeless: not at all 3. Trouble falling or staying asleep, or sleeping too much: several days 4. Feeling tired or having little energy: several days 5. Poor appetite or overeating: not at all 6. Feeling bad about yourself - or that you are a failure or have let yourself or your family down: not at all 7. Trouble concentrating on things, such as reading the newspaper or watching television: not at all 8. Moving or speaking so slowly that other people could have noticed. Or the opposite - being so fidgety or restless that you have been moving around a lot more than usual: not at all 9. Thoughts that you would be better off or of hurting yourself in some way: not at all Total score: 2 Depression Screening Interpretation: Negative Depression Screening Done: Yes 81189 - PHQ-9 Billing: Yes Source: Developed by Drs. Dino Marte, Concha Ashraf, Davin Vivas and colleagues, with an educational miladys from [employer]. Thrive Questionnaire Date Thrive assessed: 08/17/24 I am a: Patient What is your living situation today?: I have a steady place to live Within the past 12 months, did the food you bought not last and you didn't have the money to get more?: Never true Within the past 12 months, did you worry whether your food would run out before you got money to buy more?: Never true Do you have trouble paying for medicines?: No Do you have trouble getting transportation to medical appointments?: No Do you have trouble paying your heating and electricity bill?: No Do you have trouble taking care of your child, family member or friend?: No Do you have trouble with day-to-day activities such as bathing, preparing meals, shopping, managing finances, etc.?: No Are you currently unemployed and looking for a job?: No Are you interested in more education?: No Please select the resources that you would like help with: None Currently or been in a relationship where the following occur: No concerns reported THRIVE Score: 0 AUDIT C Alcohol Use Questionnaire (AUDIT-C) 1. How often do you have a drink containing alcohol?: Never 3. How often do you have six or more drinks on one occasion?: Never Total Score: 0 FREEDOM-7 AMB Questionnaire FREEDOM-7 Date FREEDOM - 7 assessed: 08/20/24 Feeling nervous, anxious, or on edge: 0 = Not at all Not being able to stop or control worryin = Not at all Worrying too much about different things: 0 = Not at all Trouble relaxin = Not at all Being so restless that it is hard to sit still: 0 = Not at all Becoming easily annoyed or irritable: 0 = Not at all Feeling afraid as if something awful might happen: 0 = Not at all Total FREEDOM-7 score (0-4 normal; 5-9 mild; 10-14 moderate; 15-21 severe): 0 Source: Developed by Drs. Dino Marte, Concha Ashraf, Davin Vivas and colleagues, with an educational miladys from [employer]. FREEDOM-7 Assessment Billing FREEDOM-7 Assessment Tool: FREEDOM-7 Assessment 80573 Physical exam (Primary Care) Vital Signs: Last Vital Signs Temp 98.0 F 02/12/25 10:49 Pulse 73 02/12/25 10:49 BP 118/72 02/12/25 10:49 Pulse Ox 97 02/12/25 10:49 BMI result Body Mass Index 30.6 Tobacco/Smoking Status: Tobacco use Status Tobacco use date assessed 08/20/24 02/12/25 10:52 Patient Tobacco Use Status Never used Tobacco 02/12/25 10:52 e-Cigarette/Vaping Use Never Used 02/12/25 10:52 PHQ-9: PHQ-9 Score PHQ-9: Total score 2 02/12/25 10:52 Depression Screening Interpretation: Negative Thrive Assessment: Date of Thrive Assessment Date Thrive assessed 08/17/24 02/12/25 10:52 Currently or been in a relationship where the following occur: No concerns reported Coding Level of Care Code Est Pt Level 4 (52044) Diagnoses Post herpetic neuralgia B02.29 Ear pain, left H92.02 Pain management R52 Additional Codes PHQ-9 - 96031 - PHQ-9 Billing: Yes ([id number]) FREEDOM-7 Assessment Billing - FREEDOM-7 Assessment Tool: FREEDOM-7 Assessment 88193 ([id number]) Assessment & Plan Assessment & Plan (1) Post herpetic neuralgia: Code(s): B02.29 - Other postherpetic nervous system involvement Category: Medical (2) Ear pain, left: Code(s): H92.02 - Otalgia, left ear Category: Medical (3) Pain management: Code(s): R52 - Pain, unspecified Category: Medical Plan History of Present Illness The patient is a 54-year-old female presenting with shingles. Shingles: - The rash initiated on the left side of the face. The pain is exacerbated - The patient initially sought treatment on February 11 and was prescribed valacyclovir - The treatment extended over seven days. - Patient reported experiencing significant burning. - She was previously given gabapentin for her elbow pain, which she continues to take. - She mentioned persistent pain impacting her sleep. - She reported a new symptom of muffled hearing on the right side upon waking the day prior to the visit. - The patient expressed nervousness about these symptoms. Problem List - Herpes Zoster (Shingles) - Pain associated with shinles (post-herpetic neuralgia) - Muffled hearing (right side) potentially related to shingles Patient Instructions - Continue with the current medication regimen. - Finish the seven-day course of valacyclovir. - Take gabapentin 300 mg twice daily. - start Medrol Dosepak - Follow up as previously scheduled for the annual checkup, or sooner if symptoms worsen or persist. To new medication started today 1 is Medrol Dosepak and 2nd increased dose of gabapentin to 300 b.i.d. Medications: New methylprednisolone (Medrol (Andrez)) PO PER PKG DIR 21 ea 0RF 6 days gabapentin 300 mg PO BID 60 caps 0RF
--- OUTSIDE RECORDS SUMMARY | 2025-02-12 13:22 | XMS_ITS | Clinical Summary ---
Author Organization [facility] Address [address] [place] [address] Care Team Providers Care Electrolysist Name Role Phone Unavailable Primary Care Provider [...]
== END 2025-02-12 12:01 | disposition home or self-care (01) ==
LOC: HO.HMCC 10:41
PROVIDERS: PCP Internal Medicine; Visit Provider Internal Medicine
DX: B02.29 Other postherpetic nervous system involvement (principal); H92.02 Otalgia, left ear

== ENCOUNTER → 2025-02-12 10:40 | Outpatient (BNVA) | payer BC, SELFPAY | PROVIDERS: PCP Internal Medicine; Visit Provider Internal Medicine | DX: B02.29 Other postherpetic nervous system involvement (principal); H92.02 Otalgia, left ear | CPT/HCPCS: 96127 ==

== ENCOUNTER 2025-02-21 15:00 | Outpatient (AMB) | payer BC, SELFPAY ==
--- NOTE | 2025-02-21 15:03 | A.OFFPC_ITS ---
Vital Signs 02/21/25 15:05 Height 5 ft 7 in Weight 199 lb 8 oz BMI 31.2 BP 120/80 Blood Pressure Location Lt brachial Position Sitting Pulse 80 Pulse Source Pulse Oximeter Pulse Oximetry (%) 95 Intake Visit Reasons: Herpetic neuralgia, per Dr Chen Allergies quetiapine (From Seroquel) Allergy (Mild, Verified 02/21/25 15:06) Swelling aspirin Allergy (Unknown, Verified 02/21/25 15:06) Not supposed to take after gastric bypass Environmental Allergy (Unknown, Uncoded 02/11/25 07:38) Unknown Medication List - Last Reconciled 02/21/25 by Ceferino Chen MD acetaminophen (Tylenol Extra Strength) 500 mg PO Q6H PRN aripiprazole 20 mg PO BEDTIME PRN econazole nitrate 1% 1 appl topical DAILY 90 days gabapentin 300 mg PO BID Tobacco use date assessed: 08/20/24 Dental Screening Dental Screen Date: 08/20/24 HPI Herpetic neuralgia, per Dr Chen HPI Details History of Present Illness The patient is a 54 year old female presenting with postherpetic neuralgia. Postherpetic Neuralgia: - Began experiencing pain first thing in the morning, around 4:00 AM, which also wakes her up. - The pain becomes bearable with medicat ion but has not fully subsided. - Experience continuous pain affecting h er teeth and ear, particularly on the left side, described as a constant toothache and earache. - Sensitivity to touch on the outside of the ear; no current rash or inflammation present, but a prior rash around the ear was noted. - Triggers for increased pain include dr inking anything cold. - Managed with gabapentin (300 mg, three times a day), which does not fully alleviate the pain and previously completed a course of prednisone without significant improvement in symptoms. Problem List - Postherpetic Neuralgia Plan - Continue gabapentin 300 mg three times a day for neuralgic pain management, as the current dose is deemed adequate. - Initiated a prescription for oxycodone to manage acute exacerbations of pain, especially at night. - Advised to take Percocet for nighttime pain control. - Plan to re-evaluate the situation in a bout a month to assess effectiveness of the pain management strategy. - Encouraged rescheduling of regular kris ck-up in conjunction with the appointment on the to streamline follow-up care. Review of Systems - General: No fever no chills - Neurological: No headaches no dizziness - Ear nose throat: No sore throat no hearing difficulty no ear pain - Cardiovascular: No syncope, no chest pain, no palpitations - Gastrointestinal: No nausea vomiting or diarrhea Physical Exam General: No acute distress HEENT: Pain in teeth on the left side, constant toothache, ear ache, hurts to touch the outside of the ear, ear exam WNL Neck: Supple Respiratory system: Able to talk in full sentences, no audible wheeze Cardiovascular: S1-S2 regular in rate and rhythm Gastrointestinal: No pain Extremities: No new findings 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 x3 motor intact Skin: Normal turgor, no rash or inflammation around the ear [facility] Medical History Flank pain Pulmonary embolism Hx of tinea corporis Hx of hemorrhoids Hx of herpes simplex infection History of irregular menstrual bleeding Hx of obesity Surgical History Hx of gastric bypass Hx of hammer toe correction Family History Father HTN (hypertension) Lung cancer Bladder cancer Mother HTN (hypertension) Maternal Grandmother Stroke Paternal Grandfather Stomach cancer Paternal Grandmother HTN (hypertension) Glaucoma Diabetes mellitus Paternal Aunt Breast cancer Thyroid cancer Other Mental health disorder Substance use disorder Social History Household Members: Significant Other Housing: Apartment Alcohol intake: former Patient Tobacco Use Status: Never used Tobacco e-Cigarette/Vaping Use: Never Used Second Hand Smoke Exposure: No Current occupational status: employed 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 1. Little interest or pleasure in doing things: not at all 2. Feeling down, depressed, or hopeless: not at all 3. Trouble falling or staying asleep, or sleeping too much: several days 4. Feeling tired or having little energy: several days 5. Poor appetite or overeating: not at all 6. Feeling bad about yourself - or that you are a failure or have let yourself or your family down: not at all 7. Trouble concentrating on things, such as reading the newspaper or watching television: not at all 8. Moving or speaking so slowly that other people could have noticed. Or the opposite - being so fidgety or restless that you have been moving around a lot more than usual: not at all 9. Thoughts that you would be better off or of hurting yourself in some way: not at all Total score: 2 Depression Screening Interpretation: Negative Depression Screening Done: Yes 72294 - PHQ-9 Billing: Yes Source: Developed by Drs. Dino Marte, Concha Ashraf, Davin Vivas and colleagues, with an educational miladys from [employer]. Thrive Questionnaire Date Thrive assessed: 08/17/24 I am a: Patient What is your living situation today?: I have a steady place to live Within the past 12 months, did the food you bought not last and you didn't have the money to get more?: Never true Within the past 12 months, did you worry whether your food would run out before you got money to buy more?: Never true Do you have trouble paying for medicines?: No Do you have trouble getting transportation to medical appointments?: No Do you have trouble paying your heating and electricity bill?: No Do you have trouble taking care of your child, family member or friend?: No Do you have trouble with day-to-day activities such as bathing, preparing meals, shopping, managing finances, etc.?: No Are you currently unemployed and looking for a job?: No Are you interested in more education?: No Please select the resources that you would like help with: None Currently or been in a relationship where the following occur: No concerns reported THRIVE Score: 0 AUDIT C Alcohol Use Questionnaire (AUDIT-C) 1. How often do you have a drink containing alcohol?: Never 3. How often do you have six or more drinks on one occasion?: Never Total Score: 0 Score Reviewed/Action Taken: Yes FREEDOM-7 AMB Questionnaire FREEDOM-7 Date FREEDOM - 7 assessed: 08/20/24 Feeling nervous, anxious, or on edge: 0 = Not at all Not being able to stop or control worryin = Not at all Worrying too much about different things: 0 = Not at all Trouble relaxin = Not at all Being so restless that it is hard to sit still: 0 = Not at all Becoming easily annoyed or irritable: 0 = Not at all Feeling afraid as if something awful might happen: 0 = Not at all Total FREEDOM-7 score (0-4 normal; 5-9 mild; 10-14 moderate; 15-21 severe): 0 Source: Developed by Drs. Dino Marte, Concha Ashraf, Davin Vivas and colleagues, with an educational miladys from [employer]. FREEDOM-7 Assessment Billing FREEDOM-7 Assessment Tool: FREEDOM-7 Assessment 44812 Physical exam (Primary Care) Vital Signs: Last Vital Signs Pulse 80 02/21/25 15:05 BP 120/80 02/21/25 15:05 Pulse Ox 95 02/21/25 15:05 BMI result Body Mass Index 31.2 Tobacco/Smoking Status: Tobacco use Status Tobacco use date assessed 08/20/24 02/21/25 15:04 Patient Tobacco Use Status Never used Tobacco 02/21/25 15:04 e-Cigarette/Vaping Use Never Used 02/21/25 15:04 PHQ-9: PHQ-9 Score PHQ-9: Total score 2 02/21/25 15:31 Depression Screening Interpretation: Negative Thrive Assessment: Date of Thrive Assessment Date Thrive assessed 08/17/24 02/21/25 15:04 Currently or been in a relationship where the following occur: No concerns reported Coding Level of Care Code Est Pt Level 3 (13734) Diagnoses Post herpetic neuralgia B02.29 Additional Codes PHQ-9 - 79131 - PHQ-9 Billing: Yes ([id number]) FREEDOM-7 Assessment Billing - FREEDOM-7 Assessment Tool: FREEDOM-7 Assessment 24013 ([id number]) Assessment & Plan Assessment & Plan (1) Post herpetic neuralgia: Code(s): B02.29 - Other postherpetic nervous system involvement Category: Medical Plan History of Present Illness The patient is a 54 year old female presenting with postherpetic neuralgia. Postherpetic Neuralgia: - Began experiencing pain first thing in the morning, around 4:00 AM, which also wakes her up. - The pain becomes bearable with medication but has not fully subsided. - Experience continuous pain affecting her teeth and ear, particularly on the left side, described as a constant toothache and earache. - Sensitivity to touch on the outside of the ear; no current rash or inflammation present, but a prior rash around the ear was noted. - Triggers for increased pain include drinking anything cold. - Managed with gabapentin (300 mg, three times a day), which does not fully alleviate the pain and previously completed a course of prednisone without significant improvement in symptoms. Problem List - Postherpetic Neuralgia Plan - Continue gabapentin 300 mg three times a day for neuralgic pain management, as the current dose is deemed adequate. - Initiated a prescription for oxycodone to manage acute exacerbations of pain, especially at night. - Advised to take Percocet for nighttime pain control. - Plan to re-evaluate the situation in about a month to assess effectiveness of the pain management strategy. - Encouraged rescheduling of regular check-up in conjunction with the appointment on the to streamline follow-up care. Medications: New oxycodone-acetaminophen 5-325 mg (Percocet) Partial Fill upon patient request. 1 tab PO .qhs PRN 30 tabs 0RF Post Herpetic Neuralgia 30 days
--- OUTSIDE RECORDS SUMMARY | 2025-02-21 15:03 | XMS_ITS | Clinical Summary ---
Author Organization [facility] Address [address] [place] [address] Care Team Providers Care Warehouse Representative Name Role Phone Unavailable Primary Care Provider [...]
[2025-02-21 15:05] VITALS: BP 120/80; PULSE 80; O2SAT 95; BMI 31.2
== END 2025-02-21 15:39 | disposition home or self-care (01) ==
LOC: HO.HMCC 15:01
PROVIDERS: PCP Internal Medicine; Visit Provider Internal Medicine
DX: B02.29 Other postherpetic nervous system involvement (principal)

== ENCOUNTER → 2025-02-21 15:00 | Outpatient (BNVA) | payer BC, SELFPAY | PROVIDERS: PCP Internal Medicine; Visit Provider Internal Medicine | DX: B02.29 Other postherpetic nervous system involvement (principal) | CPT/HCPCS: 96127 ==

== ENCOUNTER 2025-03-19 07:49 | Outpatient (AMB) | payer BC, SELFPAY ==
--- NOTE | 2025-03-19 07:52 | A.OFFPC_ITS ---
Vital Signs 03/19/25 07:54 Height 5 ft 7 in Weight 196 lb BMI 30.7 BP 116/74 Blood Pressure Location Lt brachial Position Sitting Respiration 16 Pulse 64 Pulse Source Pulse Oximeter Pulse Oximetry (%) 98 Oxygen Delivery Method Room Air Intake Visit Reasons: PE Ball Racker Required: No Accompanied by: Self / Same As Patient Allergies quetiapine (From Seroquel) Allergy (Mild, Verified 03/19/25 07:54) Swelling aspirin Allergy (Unknown, Verified 03/19/25 07:54) Not supposed to take after gastric bypass Environmental Allergy (Unknown, Uncoded 02/11/25 07:38) Unknown Medication List - Last Reconciled 03/19/25 by Ceferino Chen MD acetaminophen (Tylenol Extra Strength) 500 mg PO Q6H PRN aripiprazole 20 mg PO BEDTIME PRN econazole nitrate 1% 1 appl topical DAILY 90 days gabapentin 300 mg PO BID omeprazole 20 mg PO DAILY Tobacco use date assessed: 03/19/25 Dental Screening Dental Screen Date: 03/19/25 Did you have a dental visit in the last 12 months?: Yes Did you have a dental problem in the last 6 months where you did not have access to dental care?: No Was dental information given to patient?: Patient has dentist HPI PE HPI Details History of Present Illness The patient is a 54-year-old female presenting for a physical exam. Obesity: - The patient's BMI is 30.7. - She reports having lost approximately 40 pounds, down from 234 pounds in 2022, and is now stable around 190-195 pounds. - She is struggling to lose an additiona l 40 pounds and inquired about weight loss medications like Wegovy, but she does not meet the criteria of having diabetes or a heart condition for insurance coverage. Odontalgia: - The patient reports ongoing, intermitt ent tooth pain, which is exacerbated by drinking cold liquids. That started after having shingles on that side - She has been taking leftover gabapenti n 100 mg for the pain. Nocturnal Leg Cramps: - The patient has experienced an increas e in nocturnal leg cramps recently. - She reports drinking plenty of water a nd eating a banana daily but continues to get cramps, mostly in her calves, and recently experienced one in her thigh. - She denies drinking soda. - She had an onset of shingles in the week of January and discussed timing for the shingles vaccine. Medical History: - History of Herpes Zoster, with onset i n late January - Followed by psychiatry Health Maintenance - Pap smear: Normal, performed in December . - Mammogram: Scheduled for May 08. - Colonoscopy: Patient had a Cologuard t est in 2021 and has an appointment with gastroenterology to schedule a colonoscopy. - Immunizations: Received the influenza vaccine last week. Discussed scheduling the shingles vaccine for after Thanksgi. - Weight Management: Has lost 40 pounds since 2022. [place] [facility] Care - The patient sees a psychiatrist. - The patient sees an REGASIFICATION PLANT OPERATOR. - The patient has an upcoming appointmen t with a glost tile sorter. Patient Instructions - An order for blood tests has been plac ed. You can get this done on a Monday morning when you are fasting. - A prescription for omeprazole has been sent to your pharmacy. - Start taking magnesium glycinate at [facility] for your leg cramps. A prescription has been sent to your pharmacy. - continue with gabapentin 100 mg at [facility] time for a month - Go to your scheduled appointment with the glost tile sorter to arrange for a colonoscopy. - Get the shingles vaccine after Thanksg iving, which is a few weeks after your recent flu shot. - Continue your efforts with weight loss . - Follow up for your next annual physica l exam 1 year. Review of Systems - General: No fever no chills - Neurological: No headaches no dizzin ess - Ear nose throat: No sore throat no hearing difficulty no ear pain - Cardiovascular: No syncope, no chest pain, no palpitations - Gastrointestinal: No nausea vomiting or diarrhea - Endocrine: No polyuria polydipsia no heat intolerance - Genitourinary: No dysuria - Skin: No new complaints Physical Exam General: Cooperative, healthy appearing, comfortable, no acute distress Orientation: Patient oriented x3 Limitations: None Head: Normal to inspection Ears: Within normal limit visually Nose: Normal external nose present Face and sinus: Normal facial exam Eyes: Appearance normal, extraocular movement intact pupils reactive Neck: Normal visual inspection and supple, thyroid is not palpable, no enlarged lymph nodes Respiratory: Normal respiratory effort and able to speak in complete sentences. Clear to auscultation, no stridor Cardiovascular: S1 and S2 RRR, blood pressure is well controlled Breast exam by OBGYN GI: Normal to inspection. Soft to palpation and nontender, no nausea, vomiting, constipation, or diarrhea Skin: Turgor normal, no acute findings, no skin problems Neuro: Patient oriented x3, motor sensory intact, balance intact, tandem pass Extremities: Normal to inspection, crackling present with flexion of knees . [facility] Medical History Flank pain Pulmonary embolism Hx of tinea corporis Hx of hemorrhoids Hx of herpes simplex infection History of irregular menstrual bleeding Hx of obesity Surgical History Hx of gastric bypass Hx of hammer toe correction Family History Father HTN (hypertension) Lung cancer Bladder cancer Mother HTN (hypertension) Maternal Grandmother Stroke Paternal Grandfather Stomach cancer Paternal Grandmother HTN (hypertension) Glaucoma Diabetes mellitus Paternal Aunt Breast cancer Thyroid cancer Other Mental health disorder Substance use disorder Social History Household Members: Significant Other Housing: Apartment Alcohol intake: former Patient Tobacco Use Status: Never used Tobacco e-Cigarette/Vaping Use: Never Used Second Hand Smoke Exposure: No Current occupational status: employed 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 [employer] Current occupational exposures/hazards: No Sexual orientation: Straight/Heterosexual Gender identity: Female Cognitive needs: No Hearing needs: No Vision needs: Yes Female Reproductive History Menstrual Age of Menarche: 15 Questionnaire Thrive Questionnaire Date Thrive assessed: 08/17/24 I am a: Patient What is your living situation today?: I have a steady place to live Within the past 12 months, did the food you bought not last and you didn't have the money to get more?: Never true Within the past 12 months, did you worry whether your food would run out before you got money to buy more?: Never true Do you have trouble paying for medicines?: No Do you have trouble getting transportation to medical appointments?: No Do you have trouble paying your heating and electricity bill?: No Do you have trouble taking care of your child, family member or friend?: No Do you have trouble with day-to-day activities such as bathing, preparing meals, shopping, managing finances, etc.?: No Are you currently unemployed and looking for a job?: No Are you interested in more education?: No Please select the resources that you would like help with: None Currently or been in a relationship where the following occur: No concerns reported THRIVE Score: 0 FREEDOM-7 AMB Questionnaire FREEDOM-7 Date FREEDOM - 7 assessed: 08/20/24 Source: Developed by Drs. Dino Marte, Concha Ashraf, Davin Vivas and colleagues, with an educational miladys from [employer]. Physical exam (Primary Care) Vital Signs: Last Vital Signs Pulse 64 03/19/25 07:54 Resp 16 03/19/25 07:54 BP 116/74 03/19/25 07:54 Pulse Ox 98 03/19/25 07:54 Oxygen Delivery Method Room Air 03/19/25 07:54 BMI result Body Mass Index 30.7 Tobacco/Smoking Status: Tobacco use Status Tobacco use date assessed 03/19/25 03/19/25 07:58 Patient Tobacco Use Status Never used Tobacco 03/19/25 07:53 e-Cigarette/Vaping Use Never Used 03/19/25 07:53 Thrive Assessment: Date of Thrive Assessment Date Thrive assessed 08/17/24 03/19/25 07:53 Currently or been in a relationship where the following occur: No concerns reported Coding Level of Care Code Est Pt Level 3 (89092) Est Pt Prev Care 40-64y(24732) Diagnoses Encounter for general adult medical examination with abnormal findings Z00.01 Post herpetic neuralgia B02.29 Primary osteoarthritis of right knee M17.11 Osteoarthritis type: primary Chronic GERD K21.9 Class 2 obesity due to excess calories without serious comorbidity with body mass index (BMI) of 35.0 to 35.9 in adult E66.09; Z68.35 Obesity classification: adult class 2 (BMI 35 - 39.9) Serious obesity comorbidity presence: without serious comorbidity Body mass index: BMI 35.0-35.9 Bipolar 2 disorder F31.81 PTSD (post-traumatic stress disorder) F43.10 Anxiety, generalized F41.1 Assessment & Plan Assessment & Plan (1) Encounter for general adult medical examination with abnormal findings: Code(s): Z00.01 - Encounter for general adult medical examination with abnormal findings Category: Medical (2) Post herpetic neuralgia: Code(s): B02.29 - Other postherpetic nervous system involvement Category: Medical (3) Osteoarthritis of right knee: Code(s): M17.11 - Unilateral primary osteoarthritis, right knee Category: Medical Qualifiers: Osteoarthritis type: primary Qualified Code(s): M17.11 - Unilateral primary osteoarthritis, right knee (4) Chronic GERD: Code(s): K21.9 - Gastro-esophageal reflux disease without esophagitis Category: Medical (5) Obesity due to excess calories: Code(s): E66.09 - Other obesity due to excess calories Category: Medical Qualifiers: Obesity classification: adult class 2 (BMI 35 - 39.9) Serious obesity comorbidity presence: without serious comorbidity Body mass index: BMI 35.0- 35.9 Qualified Code(s): E66.09 - Other obesity due to excess calories; Z68.35 - Body mass index [BMI] 35.0-35.9, adult (6) Bipolar 2 disorder: Code(s): F31.81 - Bipolar II disorder Category: Medical (7) PTSD (post-traumatic stress disorder): Code(s): F43.10 - Post-traumatic stress disorder, unspecified Category: Medical (8) Anxiety, generalized: Code(s): F41.1 - Generalized anxiety disorder Category: Medical Plan PTSD/bipolar managed by Psychiatry Obesity: - The patient's BMI is 30.7. - She reports having lost approximately 40 pounds, down from 234 pounds in 2022, and is now stable around 190-195 pounds. - She is struggling to lose an additional 40 pounds and inquired about weight loss medications like Wegovy, but she does not meet the criteria of having diabetes or a heart condition for insurance coverage. Odontalgia: - The patient reports ongoing, intermittent tooth pain, which is exacerbated by drinking cold liquids. That started after having shingles on that side - She has been taking leftover gabapentin 100 mg for the pain. Nocturnal Leg Cramps: - The patient has experienced an increase in nocturnal leg cramps recently. - She reports drinking plenty of water and eating a banana daily but continues to get cramps, mostly in her calves, and recently experienced one in her thigh. - She denies drinking soda. - She had an onset of shingles in the last week of January and discussed timing for the shingles vaccine. Medical History: - History of Herpes Zoster, with onset in late January - Followed by psychiatry Health Maintenance - Pap smear: Normal, performed in December. - Mammogram: Scheduled for May 08. - Colonoscopy: Patient had a Cologuard test in 2021 and has an appointment with gastroenterology to schedule a colonoscopy. - Immunizations: Received the influenza vaccine last week. Discussed scheduling the shingles vaccine for after Thanks. - Weight Management: Has lost 40 pounds since 2022. [place] [facility] Care - The patient sees a psychiatrist. - The patient sees an REGASIFICATION PLANT OPERATOR. - The patient has an upcoming appointment with a glost tile sorter. Patient Instructions - An order for blood tests has been placed. You can get this done on a Monday morning when you are fasting. - A prescription for omeprazole has been sent to your pharmacy. - Start taking magnesium glycinate at night for your leg cramps. A prescription has been sent to your pharmacy. - continue with gabapentin 100 mg at this time for a month - Go to your scheduled appointment with the glost tile sorter to arrange for a colonoscopy. - Get the shingles vaccine after , which is a few weeks after your recent flu shot. - Continue your efforts with weight loss. - Follow up for your next annual physical exam 1 year. Orders: Orders Complete Blood Count Auto Diff Today E66.09 - Other obesity due to excess calories, F31.81 - Bipolar II disorder, F41.1 - Generalized anxiety disorder, F43.10 - Post-traumatic stress disorder, unspecified, K21.9 - Gastro-esophageal reflux disease without esophagitis, M17.11 - Unilateral primary osteoarthritis, right knee, Z00.01 - Encounter for general adult medical examination with abnormal findings, Z68.35 - Body mass index [BMI] 35.0-35.9, adult Vitamin D 25-OH (D2 and D3) Today E66.09 - Other obesity due to excess calories, F31.81 - Bipolar II disorder, F41.1 - Generalized anxiety disorder, F43.10 - Post-traumatic stress disorder, unspecified, K21.9 - Gastro-esophageal reflux disease without esophagitis, M17.11 - Unilateral primary osteoarthritis, right knee, Z00.01 - Encounter for general adult medical examination with abnormal findings, Z68.35 - Body mass index [BMI] 35.0-35.9, adult TSH reflex Free T4 Today E66.09 - Other obesity due to excess calories, F31.81 - Bipolar II disorder, F41.1 - Generalized anxiety disorder, F43.10 - Post- traumatic stress disorder, unspecified, K21.9 - Gastro-esophageal reflux disease without esophagitis, M17.11 - Unilateral primary osteoarthritis, right knee, Z00.01 - Encounter for general adult medical examination with abnormal findings, Z68.35 - Body mass index [BMI] 35.0-35.9, adult Comprehensive [place]. Panel Fast Today E66.09 - Other obesity due to excess calories, F31.81 - Bipolar II disorder, F41.1 - Generalized anxiety disorder, F43.10 - Post-traumatic stress disorder, unspecified, K21.9 - Gastro-esophageal reflux disease without esophagitis, M17.11 - Unilateral primary osteoarthritis, right knee, Z00.01 - Encounter for general adult medical examination with abnormal findings, Z68.35 - Body mass index [BMI] 35.0-35.9, adult Lipid Panel Today E66.09 - Other obesity due to excess calories, F31.81 - Bipolar II disorder, F41.1 - Generalized anxiety disorder, F43.10 - Post- traumatic stress disorder, unspecified, K21.9 - Gastro-esophageal reflux disease without esophagitis, M17.11 - Unilateral primary osteoarthritis, right knee, Z00.01 - Encounter for general adult medical examination with abnormal findings, Z68.35 - Body mass index [BMI] 35.0-35.9, adult Medications: New magnesium glycinate 100 mg PO .QHS 90 caps 3RF 90 days omeprazole 20 mg PO DAILY 90 caps 0RF Discontinued gabapentin Discontinued Reason: Doctor's Order 300 mg PO BID 60 caps 0RF
[2025-03-19 07:54] VITALS: BP 116/74; PULSE 64; RESP 16; O2SAT 98; BMI 30.7
== END 2025-03-19 08:17 | disposition home or self-care (01) ==
LOC: HO.HMCC 07:49
PROVIDERS: PCP Internal Medicine; Visit Provider Internal Medicine
DX: Z00.01 Encounter for general adult medical examination with abnormal findings (principal); K21.9 Gastro-esophageal reflux disease without esophagitis; F31.81 Bipolar II disorder; Z68.35 Body mass index [BMI] 35.0-35.9, adult; F41.1 Generalized anxiety disorder; B02.29 Other postherpetic nervous system involvement; E66.09 Other obesity due to excess calories; M17.11 Unilateral primary osteoarthritis, right knee; F43.10 Post-traumatic stress disorder, unspecified

== ENCOUNTER 2025-03-20 15:36 | Outpatient (AMB) | payer BC, SELFPAY ==
--- NOTE | 2025-03-20 15:38 | A.OFFVIS_ITS ---
Vital Signs 03/20/25 15:40 Height 5 ft 7 in Weight 196 lb BMI 30.7 BP 122/58 L Blood Pressure Location Rt brachial Position Sitting Intake Visit Reasons: Discuss Colonoscopy last seen 03/2022 Allergies quetiapine (From Seroquel) Allergy (Mild, Verified 03/20/25 15:46) Swelling aspirin Allergy (Unknown, Verified 03/20/25 15:46) Not supposed to take after gastric bypass Environmental Allergy (Unknown, Uncoded 02/11/25 07:38) Unknown HPI HPI Discuss Colonoscopy last seen 03/2022: Details: 59-year-old female here for colon cancer screening recall after having a negative Cologuard in 2021. She says she has a very difficult stick and had a lot of anxiety about having a procedure because of IV access. PMX Obesity Post herpetic neuralgia GERD Recurrent genital herpes Chronic low back pain Osteoarthritis of the knees Irregular periods Bipolar 2 disorder/PTSD/anxiety History of pulmonary embolism on OCPs * SURGICAL HISTORY Gastric bypass Hammertoe correction * ALLERGIES Seroquel Aspirin * [facility] LABS: none recent Last note is as follows: Assessment & Plan (1) Pre-op examination: ?Code(s): Z01.818 - Encounter for other preprocedural examination ?Plan: She has had prior scopes, the last in 2009 at [facility]. No polyps. She is a very difficult stick, and [facility] would prefer a Cologuard test. She has no FHX of CRC or polyps. ROV 6 weeks. (2) H/O colonoscopy: ?Code(s): Z98.890 - Other specified postprocedural states ? ? ? Medications: New peg 3350-electrolytes 236-22.74-6.74 -5.86 gram (Golytely) ?? until fecal effluent is clear; do not exceed a total volume of 2,000 mL 240 mL? PO Q10M 1 day 4,000 mL 0RF Z12.11 - Encounter for screening for malignant neoplasm of colon ? COLOGUARD RESULTS 2021 Negative TODAY'S VISIT Father recently dx'ed with colon polyps in late 's. So she would rather have a colonoscopy this time. Bowels or upper GI: occasional CIC not of note Cardiac or respiratory: No Anesthesia or sedation problems: No ID: No FHX as above. [facility] Medical History (Updated 03/19/25 @ 11:43 by RAF Blancas) Pain management Encounter for general adult medical examination with abnormal findings Encounter to discuss test results Tinea corporis Skin cancer screening Shortness of breath Acute exacerbation of chronic low back pain Viral syndrome Well woman exam Encounter for Nexplanon removal control counseling Surveillance of contraceptive implant Flank pain Pulmonary embolism Hx of tinea corporis Hx of hemorrhoids Hx of herpes simplex infection History of irregular menstrual bleeding Hx of obesity Surgical History (Updated 03/20/25 @ 15:43 by Dana Clark [facility]) H/O colonoscopy Hx of gastric bypass Hx of hammer toe correction Family History Father HTN (hypertension) Lung cancer Bladder cancer Mother HTN (hypertension) Maternal Grandmother Stroke Paternal Grandfather Stomach cancer Paternal Grandmother HTN (hypertension) Glaucoma Diabetes mellitus Paternal Aunt Breast cancer Thyroid cancer Other Mental health disorder Substance use disorder Social History Household Members: Significant Other Housing: Apartment Alcohol intake: former Patient Tobacco Use Status: Never used Tobacco e-Cigarette/Vaping Use: Never Used Second Hand Smoke Exposure: No Current occupational status: employed 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 [employer] Current occupational exposures/hazards: No Sexual orientation: Straight/Heterosexual Gender identity: Female Cognitive needs: No Hearing needs: No Vision needs: Yes Female Reproductive History Menstrual Age of Menarche: 15 Review of Systems Const Denies fatigue, Denies fever(s), Denies night sweats, Denies poor appetite and Denies weight loss Eyes Details: glasses Reports requires corrective lenses ENT Reports Normal hearing present, Denies dental pain, Denies dysphagia, Denies hearing loss, Denies mouth pain, Denies odynophagia, Denies throat swelling, Denies tongue swelling and Reports other (Dentition adequate) GI Details: Denies abdominal pain, Denies melena, Denies bloating, Denies hematochezia, Denies constipation, Denies GI cramping, Denies dysphagia, Denies excessive flatus, Denies early satiety, Denies heartburn, Denies diarrhea, Denies nausea, Denies odynophagia, Denies vomiting and Denies hematemesis Skin/Breast Denies pruritus, Denies lesions, Denies rash and Denies jaundice Neuro Reports Normal hearing present and Denies Abnormal speech present Endo Denies fatigue Aller/Immun Denies throat swelling and Denies tongue swelling Physical Exam Vital Signs: Last Vital Signs BP 122/58 L 03/20/25 15:40 BMI result Body Mass Index 30.7 Const General: cooperative, no acute distress, well developed and well groomed Nutritional Appearance: well nourished, obese and overweight Orientation/consciousness: oriented to person, oriented to place and oriented to time Limitations: No language barrier, ambulation with cane, ambulation with walker and wheelchair HEENT Head: Yes normocephalic and Yes atraumatic Eyes General: appearance normal, both eyes and all related structures Pupils: Equal, round and reactive pupils present Neck Neck: Yes normal visual inspection and Yes no lymphadenopathy Thyroid: Thyroid normal Resp Effort & Inspection: normal respiratory effort and able to speak in complete sentences Auscultation: clear to auscultation bilaterally Cardio Rate: regular rate Rhythm: regular rhythm Heart sounds: Normal, physiologic split S2 sound present Peripheral pulses: radial pulses present and posterior tibial pulses present GI Inspection: No distended and No Abdominal panniculus present Palpation (GI): Soft to palpation, nontender, no guarding, not rigid, No hepatosplenomegaly present and Hepatosplenomegaly present Percussion: Yes normal to percussion Auscultation: normal bowel sounds Rectal Exam - Female: deferred Skin General skin exam: no rashes or lesions noted, turgor normal, skin not dry, no jaundice, No spider nevi and no striae Rashes: no rashes Nails: normal Neuro General: oriented to person, oriented to place and oriented to time Cranial nerves: Yes Equal, round and reactive pupils present and Yes Normal hearing present Speech: No Abnormal speech present Extrem General: Yes normal to inspection, No clubbing, No cyanosis and No edema Psych Thought process: Normal thought process present and not confabulating Thought content: Normal thought content present Insight: Good insight present (Psych) Judgement: Good judgement present (Psych) Assessment & Plan Assessment & Plan (1) Colon cancer screening: Comment: 2021- Cologuard repeat in 3 years Code(s): Z12.11 - Encounter for screening for malignant neoplasm of colon Category: Medical (2) Pre-op examination: Code(s): Z01.818 - Encounter for other preprocedural examination Category: Medical Plan Father recently dx'ed with colon polyps in late 's. So she would rather have a colonoscopy this time. Bowels or upper GI: occasional CIC not of note Cardiac or respiratory: No Anesthesia or sedation problems: No ID: No FHX as above. Orders: Referrals GI Procedure Notification Z01.818 - Encounter for other preprocedural examination Medications: New 2 sod sulf-pot chloride-mag sulf 1.479-0.188- 0.225 gram (Sutab) PO PER PKG DIR for colonoscopy prep 24 tabs 0RF Discontinued omeprazole Discontinued Reason: Insurance Denied 20 mg PO DAILY 90 caps 0RF Coding Level of Care Code New Pt Level 3 (22505) Diagnoses Colon cancer screening Z12.11 Pre-op examination Z01.818
[2025-03-20 15:40] VITALS: BP 122/58; BMI 30.7
--- OUTSIDE RECORDS SUMMARY | 2025-03-20 18:04 | XMS_ITS | Clinical Summary ---
Author Organization [facility] Address [address] [place] [address] Care Team Providers Care Garnisher Name Role Phone Unavailable Primary Care Provider [...] 2021 COVID-19 Vaccine (1 - season) 2025 RSV Vaccine 50 years and old er and Patients (1 - 1-dose 75+ series) 2046
== END 2025-03-20 15:56 | disposition home or self-care (01) ==
LOC: HO.HGI 15:37
PROVIDERS: PCP Internal Medicine; Visit Provider Nurse Practitioner
DX: Z01.818 Encounter for other preprocedural examination (principal); Z12.11 Encounter for screening for malignant neoplasm of colon
CPT/HCPCS: S0285

== ENCOUNTER 2025-04-25 10:40 | Day surgery (SDC) | payer BC, SELFPAY ==
--- OUTSIDE RECORDS SUMMARY | 2025-04-04 19:48 | XMS_ITS | Clinical Summary ---
Author Organization [facility] Address [address] [place] [address] Care Team Providers Care Mechanical Supervisor Name Role Phone Unavailable Primary Care Provider [...]
--- NOTE | 2025-04-22 13:31 | HO.ANESPROP2 ---
Documented by User: Krystal Patel NP 04/22/25 13:31 HPI - Anesthesia Eval Consult details Narrative: 54 yr old female for colonoscopy PMFSH Active Problems Active Problems: All Active Problems Ear pain, left (Acute) Post herpetic neuralgia (Acute) Shingles rash (Acute) Paresthesia of right arm (Acute) Recurrent genital herpes (Acute) Chronic GERD (Acute) Lightheadedness (Acute) Lower back pain (Acute) Anxiety, generalized (Acute) PTSD (post-traumatic stress disorder) (Acute) Bipolar 2 disorder (Acute) Right lumbar radiculitis (Acute) Left hip pain (Acute) Colon cancer screening (Acute) Pre-op examination (Acute) Osteoarthritis of right knee (Acute) Knee pain, right (Acute) Amenorrhea (Acute) Ulnar neuropathy at elbow of right upper extremity (Acute) Obesity due to excess calories (Acute) Irregular bleeding (Acute) Past Medical History Medical History Pain management Encounter for general adult medical examination with abnormal findings Encounter to discuss test results Tinea corporis Skin cancer screening Shortness of breath Acute exacerbation of chronic low back pain Viral syndrome Well woman exam Encounter for Nexplanon removal control counseling Surveillance of contraceptive implant Flank pain Pulmonary embolism Hx of tinea corporis Hx of hemorrhoids Hx of herpes simplex infection History of irregular menstrual bleeding Hx of obesity Family History Family History Father HTN (hypertension) Lung cancer Bladder cancer Mother HTN (hypertension) Maternal Grandmother Stroke Paternal Grandfather Stomach cancer Paternal Grandmother HTN (hypertension) Glaucoma Diabetes mellitus Paternal Aunt Breast cancer Thyroid cancer Other Mental health disorder Substance use disorder Surgical History Surgical History H/O colonoscopy Hx of gastric bypass Hx of hammer toe correction Social History Social History Household Members: Significant Other Housing: Apartment Alcohol intake: former Patient Tobacco Use Status: Never used Tobacco e-Cigarette/Vaping Use: Never Used Second Hand Smoke Exposure: No Use of substances other than those prescribed or required for medical reasons: No Advance Directives: No Advance Directives Information Provided: Yes Current occupational status: employed 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[employer] Current occupational exposures/hazards: No Sexual orientation: Straight/Heterosexual Gender identity: Female Cognitive needs: No Hearing needs: No Vision needs: Yes Meds Allergies Allergy/AdvReac Type Severity Reaction Status Date / Time quetiapine (From Seroquel) Allergy Mild Swelling Verified 03/20/25 15:46 aspirin Allergy Unknown Not Verified 03/20/25 15:46 supposed to take after gastric bypass Environmental Allergy Unknown Unknown Uncoded 02/11/25 07:38 Home Medications ?Medication ?Instructions ?Recorded ?Confirmed ?Last Taken ?Type aripiprazole 20 mg tablet 20 mg PO BEDTIME 02/21/20 04/25/25 04/25/25 History omeprazole 20 mg 04/25/25 04/25/25 History Documented by User: Calixto Guerrero MD 04/25/25 13:31 PMFSH Past Medical History Medical History Pain management Encounter for general adult medical examination with abnormal findings Encounter to discuss test results Tinea corporis Skin cancer screening Shortness of breath Acute exacerbation of chronic low back pain Viral syndrome Well woman exam Encounter for Nexplanon removal control counseling Surveillance of contraceptive implant Flank pain Pulmonary embolism Hx of tinea corporis Hx of hemorrhoids Hx of herpes simplex infection History of irregular menstrual bleeding Hx of obesity Functional capacity: independent ambulation Family History Family History Father HTN (hypertension) Lung cancer Bladder cancer Mother HTN (hypertension) Maternal Grandmother Stroke Paternal Grandfather Stomach cancer Paternal Grandmother HTN (hypertension) Glaucoma Diabetes mellitus Paternal Aunt Breast cancer Thyroid cancer Other Mental health disorder Substance use disorder Family history of problems with anesthesia: No Surgical History Surgical History H/O colonoscopy Hx of gastric bypass Hx of hammer toe correction History of Problems with Anesthesia: No Social History Social History Household Members: Significant Other Housing: Apartment Alcohol intake: former Patient Tobacco Use Status: Never used Tobacco e-Cigarette/Vaping Use: Never Used Second Hand Smoke Exposure: No Use of substances other than those prescribed or required for medical reasons: No Advance Directives: No Advance Directives Information Provided: Yes Current occupational status: employed 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[employer] [facility] Current occupational exposures/hazards: No Sexual orientation: Straight/Heterosexual Gender identity: Female Cognitive needs: No Hearing needs: No Vision needs: Yes Meds Allergies Allergy/AdvReac Type Severity Reaction Status Date / Time quetiapine (From Seroquel) Allergy Mild Swelling Verified 03/20/25 15:46 aspirin Allergy Unknown Not Verified 03/20/25 15:46 supposed to take after gastric bypass Environmental Allergy Unknown Unknown Uncoded 02/11/25 07:38 Home Medications ?Medication ?Instructions ?Recorded ?Confirmed ?Last Taken ?Type aripiprazole 20 mg tablet 20 mg PO BEDTIME 02/21/20 04/25/25 04/25/25 History omeprazole 20 mg 04/25/25 04/25/25 History Exam Exam Date and Time: 04/25/25 Airway Mallampati Class: II TM Dist: >3cm Neck ROM: Full Loose/Missing/Broken Teeth: No Heart: rrr Lungs: cta Other: normal Assessment and Plan Assessment Anesthesia Assessment: Anesthesia Plan Discussed and Chart Reviewed Final Anesthetic Review Family History of Problems with Anesthesia: No History of Problems with Anesthesia: No NPO: Yes ASA Class: II Final Preanesthetic Review: No Changes in Pt Med Stat, Meds/Allgs Chart Reviewed, Consent Obtained/Reviewed and Anes Risks/Benef Reviewed Patient Risk: Low Procedure Risk: Low Anesthetic Plan Anesthetic Plan: MAC: Disposition: Standard PACU
[2025-04-25 11:31] VITALS: BMI 29.6
--- NOTE | 2025-04-25 11:31 | MHC.SHP ---
Pre-Procedural Eval Section A - 24 Hr Update-Section A only Date of Service: 04/25/25 Section B - Complete if H&P > 30 days Chief Complaint: screening Details of Present Illness: Tinea corporis Pulmonary embolism Hx of tinea corporis Hx of hemorrhoids Hx of herpes simplex infection History of irregular menstrual bleeding Hx of obesity Surgical History (Updated 03/20/25 @ 15:43 by JAYY Hawk) H/O colonoscopy Hx of gastric bypass Hx of hammer toe correction Present Medications: see Short Stay Collaborative assessment Allergies: Allergies Allergy/AdvReac Type Severity Reaction Status Date / Time quetiapine (From Seroquel) Allergy Mild Swelling Verified 03/20/25 15:46 aspirin Allergy Unknown Not Verified 03/20/25 15:46 supposed to take after gastric bypass Environmental Allergy Unknown Unknown Uncoded 02/11/25 07:38 Review of Systems Review of Systems Comment: 10 point ROS negative Exam Exam Comment: Gen appear: No acute distress HEENT: no icterus Chest: No overt resp distress Abd: soft, nontender, nondistended Psych: Stable affect, answering questions appropriately Neuro: A/Ox3 noted to move all extremities spontaneously Ext: no peripheral edema Plan Diagnosis/Plan: Unchanged I have reviewed the history and physical and performed a pertinent physical examination on my patient. No changes have occurred unless specified. Time Spent With Patient Time: Total time managing care of this patient today ____ minutes.
[2025-04-25] MEDS: Lactated Ringers 1,000 ML 100 ML IVCONT (11:51)
[2025-04-25 11:52] VITALS: BP 122/53; PULSE 75; RESP 16; TEMP 36.7; O2SAT 100
--- NOTE | 2025-04-25 12:07 | PC.NURSE ---
Pt vasovagul'd HR 42 BP 75/44 pt placed in trendelenberg, IVF opened up cold cloth to forehead. Pt feeling much better HR 59 and BP 102/62
--- NOTE | 2025-04-25 14:04 | P.OP_ITS ---
Operative Note Operative Note Date of Service: 04/25/25 Narrative: Procedure: Colonoscopy Indication: Screening Endoscopist: Lesia Stover MD Anesthesia Provider: Dr Guerrero Anesthesia type: MAC Instrument: Olympus [id number]-H190L Consent: Indication, risks vs benefits, and alternatives were discussed with the patient who gave written informed consent to proceed. EKG, pulse, pulse oximetry and blood pressure were monitored throughout the procedure. Please see anesthesia flowsheet. Procedure: The patient was brought to the procedure room and placed in the left lateral decubitus position. IV medications were administered by the anesthesia provider in attendance. A digital rectal exam was performed which was normal. The colonoscope was then inserted through the anus and advanced through the colon to the cecum at 75 cm,and terminal ileum. Mucosa was carefully examined under high definition white light as the instrument was slowly withdrawn in a retrograde panoramic fashion. Retroflexion was performed in rectum. The procedure was not difficult. There were no immediate obvious complications. The quality of the prep was BBPS: 3+3+2 = adequate Withdrawal time 12 minutes. Limitations: No limitations. Findings: Mucosa: Normal to cecum and terminal ileum. Protruding lesions: * 1 sessile polyp of size 4 mm in sigmoid colon. Cold snare polypectomy was performed. The polyp was completely removed and retrieved. * Medium internal hemorrhoids without stigmata of recent bleeding. Impression: 1. Normal colon and terminal ileum mucosa 2. Total of 1 polyp removed 3. Internal hemorrhoids Recommendations: - Follow path results. - Repeat colonoscopy in 7-10 years if polyp is an adenoma.
[2025-04-25 14:07] VITALS: BP 119/73; PULSE 72; RESP 16; TEMP 36.1; O2SAT 98
[2025-04-25 14:17] VITALS: BP 117/70; PULSE 76; RESP 16; TEMP 36.6; O2SAT 98
== END 2025-04-25 14:37 | disposition home or self-care (01) ==
PROVIDERS: PCP Internal Medicine; Visit Provider Internal Medicine
PROC: 0DJD8ZZ Inspection of Lower Intestinal Tract, Via Natural or Artificial Opening Endoscopic (ICD-10-PCS; CPT 45378; principal; 2025-04-25 13:40)
DX: Z12.11 Encounter for screening for malignant neoplasm of colon (principal); Z83.719 Family history of colon polyps, unspecified; K64.8 Other hemorrhoids; K63.5 Polyp of colon
CPT/HCPCS: 45385; 88305; J2003; J2704

== ENCOUNTER → 2025-04-25 10:40 | Outpatient (BNV) | payer BC, SELFPAY | PROVIDERS: PCP Internal Medicine; Visit Provider Internal Medicine | DX: Z12.11 Encounter for screening for malignant neoplasm of colon (principal); K63.5 Polyp of colon; K64.8 Other hemorrhoids | CPT/HCPCS: 45385 ==

== ENCOUNTER 2025-05-16 14:38 | Emergency (ER) | payer BC, SELFPAY ==
--- NOTE | ~2025-05-16 | US_ITS ---
EXAMINATION: US TRIPLEX LOWER EXTREMITY, LEFT CLINICAL INFORMATION: Left lower leg pain COMPARISON: None available. TECHNIQUE: Color-flow triplex imaging with spectral analysis and compression Doppler were performed on the left lower extremity. FINDINGS: Respiratory variation, normal compression and augmented flow are noted throughout the left lower extremity. The visualized common femoral vein, superficial femoral vein, profunda femoral vein, popliteal vein and midcalf peroneal and posterior tibial venous segments show no evidence of deep venous thrombosis. There is no Castillo's cyst. US/US venous duplex LE LT IMPRESSION: No evidence of deep venous thrombosis involving the left lower extremity. Electronically signed by: Carlos Franz MD 05/16/2025 03:50 PM EST
[2025-05-16 15:03] VITALS: BP 157/69; PULSE 90; RESP 18; TEMP 36.1; O2SAT 98; BMI 29.0
--- NOTE | 2025-05-16 15:05 | ED.LOWEXIN ---
HPI - Extremity Injury (Lower) General Chief Complaint: Extremity Injury, Lower Stated Complaint: Pain In Left Calf, Possible Blood Clot Time Seen by Provider: 05/16/25 19:44 Source: patient and family (patient's fiance) Mode of arrival: wheelchair Limitations: no limitations History of Present Illness ED Provider: Kaitlyn Mireles PA-C HPI Narrative: Patient is a 55 year old female with a history of bipolar disorder, PTSD, shingles, and a left fibular fracture presenting to the emergency department today with left lower extremity pain and swelling. Patient states that she has a left fibular fracture that she is following with an orthopedic team for and over the last week she has been having left calf pain with swelling. Patient states that she has not been elevating the extremity when stationary. Patient states that she spoke with her provider and they recommended coming in for an ultrasound to rule out a DVT. Patient denies any numbness / tingling. Patient denies any other complaints at this time. Related Data Home Medications ?Medication ?Instructions ?Recorded ?Confirmed aripiprazole 20 mg tablet 20 mg PO BEDTIME 02/21/20 04/25/25 omeprazole 20 mg 04/25/25 Previous Rx's ?Medication ?Instructions ?Recorded acetaminophen 500 mg tablet 500 mg PO Q6H PRN fever or pain 06/07/22 (Tylenol Extra Strength) #14 tabs econazole nitrate 1 % topical cream 1 appl topical DAILY 90 days #85 12/06/24 grams magnesium glycinate 100 mg PO .QHS 90 days #90 caps 03/19/25 valacyclovir 1 gram tablet 1,000 mg PO DAILY 30 days #30 tabs 05/01/25 Allergies Allergy/AdvReac Type Severity Reaction Status Date / Time quetiapine (From Seroquel) Allergy Mild Swelling Verified 05/16/25 15:07 aspirin Allergy Unknown Not Verified 05/16/25 15:07 supposed to take after gastric bypass Environmental Allergy Unknown Unknown Uncoded 02/11/25 07:38 Review of Systems Constitutional: Constitutional: Reports as per HPI Eyes: Eyes: Reports as per HPI ENT: Reports as per HPI Cardiovascular: Cardiovascular: Reports as per HPI Respiratory: Respiratory: Reports as per HPI Gastrointestinal: Gastrointestinal: Reports as per HPI Genitourinary: Genitourinary: Reports as per HPI Musculoskeletal: Musculoskeletal: Reports as per HPI Integumentary/Breasts: Skin/Breast: Reports as per HPI Neurologic: Reports as per HPI Psychiatric: Psychiatric: Reports as per HPI Endocrine: Endocrine: Reports as per HPI Hematologic/Lymphatic: Hematologic/Lymphatic: Reports as per HPI Allergic/Immunologic: Allergic/Immunologic: Reports as per HPI [facility] Past Medical History Attestation statement: The following information was validated with the patient. (all information validated with the patient's fiance) Source: old records reviewed, nursing notes reviewed and other (patient's fiance provided additional history and confirmed the history provided by the patient. ) Medical History Pain management Encounter for general adult medical examination with abnormal findings Encounter to discuss test results Tinea corporis Skin cancer screening Shortness of breath Acute exacerbation of chronic low back pain Viral syndrome Well woman exam Encounter for Nexplanon removal control counseling Surveillance of contraceptive implant Flank pain Pulmonary embolism Hx of tinea corporis Hx of hemorrhoids Hx of herpes simplex infection History of irregular menstrual bleeding Hx of obesity Surgical History H/O colonoscopy Hx of gastric bypass Hx of hammer toe correction Family History Family History Father HTN (hypertension) Lung cancer Bladder cancer Mother HTN (hypertension) Maternal Grandmother Stroke Paternal Grandfather Stomach cancer Paternal Grandmother HTN (hypertension) Glaucoma Diabetes mellitus Paternal Aunt Breast cancer Thyroid cancer Other Mental health disorder Substance use disorder Social History Social History Household Members: Significant Other Housing: Apartment Alcohol intake: former Patient Tobacco Use Status: Never used Tobacco e-Cigarette/Vaping Use: Never Used Second Hand Smoke Exposure: No Advance Directives: No Advance Directives Information Provided: Yes Do you have a plan to hurt others: No Plan Current occupational status: employed 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 [employer] Current occupational exposures/hazards: No Sexual orientation: Straight/Heterosexual Gender identity: Female Cognitive needs: No Hearing needs: No Vision needs: Yes Physical Exam Vital Signs: Vital Signs: Last Vital Signs Temp 97.0 F 05/16/25 19:49 Pulse 90 05/16/25 19:49 Resp 18 05/16/25 19:49 BP 157/69 H 05/16/25 19:49 Pulse Ox 98 05/16/25 19:49 O2 Del Method Room Air 05/16/25 19:49 BMI result Body Mass Index 29.0 Const: General: cooperative, no acute distress, alert and awake Nutritional Appearance: well nourished Orientation/consciousness: patient oriented x3 HEENT: Head: Yes normal to inspection and Yes atraumatic Ears: hearing grossly normal bilaterally and external ears normal General nose exam: Normal external nose present, no nasal discharge noted and no epistaxis Face and sinus: Yes normal facial exam, No abrasion and No laceration Mouth: Normal oral and palatal mucosa present, no drooling and no muffled voice Eyes: General: appearance normal, both eyes and all related structures Periorbital: periorbital findings normal Eyelids: Yes eyelids normal Conjunctivae: conjunctivae normal Pupils: Equal, round and reactive pupils present EOM: EOMs intact bilaterally Neck: Neck: Yes normal visual inspection and Yes full ROM Resp: Effort & Inspection: normal respiratory effort and able to speak in complete sentences Neuro: General: patient oriented x3, moves all extremities and CN's II-XI intact bilaterally Cranial nerves: Yes Equal, round and reactive pupils present Cognition (Neuro): normal cognition Extrem: Other: left lower extremity is in a knee immobilizer - per her baseline s/p fibular fracture General: Yes capillary refill normal Psych: Appearance: grossly normal Mental Status: mental status grossly normal Affect: normal affect Attitude: cooperative Thought process: Normal thought process present Thought content: Normal thought content present Insight: Good insight present (Psych) Course Course Course Narrative: This is a Rapid Medical Exam performed in triage by Krystal Rae PA-C. Full HPI, ROS and PE to be performed by primary ED provider. 55 yo F w/pmhx Fibular head fx (05/04/25) presenting to the ED c/o LLE pain/calf pain x1 week. denies SOB or AC use PE: ambulating w/crutches. +LLE discoloration & swelling. NV intact Plan: US Medical Decision Making Medical Decision Making MDM Narrative: Patient is a 55 year old female with a history of bipolar disorder, PTSD, shingles, and a left fibular fracture presenting to the emergency department today with left lower extremity pain and swelling. Patient's physical exam was as noted in the physical exam portion of this note. Patient's left lower extremity US showed no acute process. I explained my physical exam findings as well as all test results to the patient and the patient's fiance. I answered all questions asked by the patient and the patient's fiance. I suspect the swelling is secondary to routine healing and the patient not elevating her left lower extremity when stationary. I recommended the patient elevate the left lower leg when stationary. I stressed the importance of the patient taking her medication as directed (either prescribed or as the over the counter packaging recommends). I stressed the importance of the patient following up with [his/her/their] primary care provider. I stressed the importance of the patient returning to the emergency department immediately if her symptoms were to worsen or if she were to develop any dizziness, shortness of breath, difficulty breathing, chest pain, blurry vision, loss of vision, nausea, vomiting, abdominal pain, fever, chills, back pain, or any other complaints. Patient and the patient's fiance verbalized agreement and understanding with this treatment plan and discharge. Differential Diagnosis Differential Diagnoses: The differential diagnosis associated with the presentation includes Left lower leg swelling Left lower extremity DVT Routine healing of fibular fracture Admission/Observation Consideration of admission/observation: Escalation of care including admission/observation considered Patient would have been admitted to the hospital had her work up had any findings where hospital admission was appropriate and her clinical presentation warranted hospital admission. Independent Interpretation I performed an independent interpretation of an: Ultrasound Interpretation: My interpretation is in agreement with the radiologist's impression of this imaging study as written below. EXAMINATION: US TRIPLEX LOWER EXTREMITY, LEFT CLINICAL INFORMATION: Left lower leg pain COMPARISON: None available. TECHNIQUE: Color-flow triplex imaging with spectral analysis and compression Doppler were performed on the left lower extremity. FINDINGS: Respiratory variation, normal compression and augmented flow are noted throughout the left lower extremity. The visualized common femoral vein, superficial femoral vein, profunda femoral vein, popliteal vein and midcalf peroneal and posterior tibial venous segments show no evidence of deep venous thrombosis. There is no Castillo's cyst. US/US venous duplex LE IMPRESSION: No evidence of deep venous thrombosis involving the left lower extremity. Electronically signed by: Carlos Franz MD 05/16/2025 03:50 PM [facility] Dictated By: Carlos Franz MD Signed By: Electronically signed by Carlos Franz MD 05/16/25 1550 Radiology Impression Discussion of test interpretation with radiology: I have reviewed the radiologist's reading. Independent Historian Clinical information obtained from an independent historian. History obtained from or confirmed by: Other (patient's fiance provided additional history and confirmed the history provided by the patient. ) Discharge Plan Discharge Clinical Impression: Swelling of left lower extremity Patient Disposition: Home, Self-Care Instructions: Leg Edema (ED) Additional Instructions: Your left lower leg ultrasound showed no evidence of a blood clot. Elevate your left lower leg with at least 2 pillows whenever you are stationary to keep the swelling down. IF you are prescribed home medications and/or you are taking over the counter medications at home - it is very important you continue to do so as prescribed / directed unless told otherwise by a healthcare provider. Follow up with your primary care provider and the orthopedic team. Do your best to stay well hydrated and rest. Return to the emergency department immediately if your symptoms worsen or if you develop any numbness, tingling, dizziness, shortness of breath, difficulty breathing, chest pain, blurry vision, loss of vision, nausea, vomiting, abdominal pain, fever, chills, back pain, or any other complaints. Please see the information below about our Patient Portal. If you are not yet enrolled in the [facility] Patient Portal, you will receive an enrollment email invitation following your visit to any [facility] care setting. You may also self-enroll in the Patient Portal by visiting our website: [email or web address] The following information is required to access the Patient Portal: - Your [facility] Medical Record Number - Your personal home email address (must match what is in your electronic medical record, Registration staff can assist with this) - Name - Date of Capabilities of the Patient Portal: - Message some providers - View upcoming appointments - Access your health summary, medical history, and visit history - View current conditions and allergies - View procedure and lab results - View your medications, including guidelines, side effects, and precautions - Complete pre-appointment questionnaires requested by your provider - Ready summary reports of your office visits and procedures To access the Patient Portal Mobile [employer], follow these directions: - Search [employer] in the [employer] Store or [employer] (f[employer]) Store - Download the [employer]ar - Search for [facility] - Enter your login/password Prescriptions: No Action econazole nitrate 1 % cream 1 appl topical DAILY 90 Days Qty: 85 0RF valacyclovir 1 gram tablet 1,000 mg PO DAILY 30 Days Qty: 30 0RF acetaminophen [Tylenol Extra Strength] 500 mg tablet 500 mg PO Q6H PRN (Reason: fever or pain) Qty: 14 0RF omeprazole 20 mg aripiprazole 20 mg tablet 20 mg PO BEDTIME magnesium glycinate 100 mg magnesium capsule 100 mg PO .QHS 90 Days Qty: 90 3RF Referrals: Ceferino Chen MD [Primary Care Provider, Internal Medicine] Stand Alone Forms: Work/School Release Interventions: ED Discharge Assessment Last Done: 05/16/25 19:49 Discharge Date/Time: 05/16/25 19:50 Print Language: Citizen Of [place]
--- OUTSIDE RECORDS SUMMARY | 2025-05-16 16:35 | XMS_ITS | Clinical Summary ---
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
[2025-05-16 19:49] VITALS: BP 157/69; PULSE 90; RESP 18; TEMP 36.1; O2SAT 98
== END 2025-05-16 19:50 | disposition home or self-care (01) ==
PROVIDERS: Emergency Provider Student in an Organized Health Care Education/Training Program; PCP Internal Medicine
DX: M79.605 Pain in left leg (principal); M79.89 Other specified soft tissue disorders; S82.492D Other fracture of shaft of left fibula, subsequent encounter for closed fracture with routine healing; X58.XXXD Exposure to other specified factors, subsequent encounter; Z79.899 Other long term (current) drug therapy
CPT/HCPCS: 93971; 99282; 99284

== ENCOUNTER → 2025-05-16 15:09 | Outpatient (BNV) | payer BC, SELFPAY | PROVIDERS: PCP Internal Medicine; Visit Provider Radiology Diagnostic Ultrasound | DX: M79.662 Pain in left lower leg (principal) | CPT/HCPCS: 93971 ==